=== PATIENT | male | born 1950 | race Caucasian/White ===

== ENCOUNTER 2022-04-24 15:30 | Emergency (ER) | payer MEDICARE, BC, SELFPAY ==
[2022-04-24 15:34] VITALS: BP 184/103; PULSE 75; RESP 20; TEMP 36.4; O2SAT 95; BMI 31.3
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
[2022-04-24 16:17] VITALS: O2SAT 93
[2022-04-24 16:24] LABS: Basophils Absolute Auto 0.02 K/uL (0.00-0.30); Basophils Percent Auto 0.3 % (0.0-3.0); Eosinophils Absolute Auto 0.15 K/uL (0.00-0.50); Eosinophils Percent Auto 1.9 % (0.0-7.0); Hematocrit 40.3 % (37.0-53.0); Hemoglobin* 12.7 gm/dL (13.5-17.5); Immature Granulocytes Abs Auto 0.02 K/uL (0.00-0.30); Lymphocytes Percent Auto 14.9 % (20-44); Mean Corpuscular HGB Conc 32 gm/dL (32-36); Mean Corpuscular Hemoglobin 26 pg (26-34); Mean Corpuscular Volume 83 fL (80-100); Monocytes Percent Auto 6.4 % (0.0-11.0); Neutrophils Percent Auto 76.2 % (42.0-72.0); Platelet Count* 267 K/uL (140-440); RDW Coefficient of Variation % 14.3 % (11.5-15.5); Red Blood Count 4.86 m/uL (4.30-5.90); White Blood Count* 7.79 K/uL (4.50-11.00)
[2022-04-24 16:34] LABS: Slide Review Reflex No
[2022-04-24 16:38] LABS: Chloride* 104 mmol/L (96-114)
[2022-04-24 16:39] LABS: Potassium* 4.7 mmol/L (3.6-5.1); Sodium* 140 mmol/L (135-149)
[2022-04-24 16:41] LABS: Creatinine* 0.8 mg/dL (0.5-1.5); Est. Creatinine Clearance* 64.26; Estimated Glomerular Filt Rate 95.21
[2022-04-24 16:42] LABS: Blood Urea Nitrogen* 18 mg/dL (7-30); Carbon Dioxide* 33 mmol/L (20-32); Glucose* 115 mg/dL (60-115)
[2022-04-24 16:51] LABS: NT Pro B Type NatriureticPept* 344 PG/mL (0-125)
[2022-04-24 17:07] LABS: Troponin I* < 0.01 ng/mL (0.01-0.04)
[2022-04-24 18:13] VITALS: BP 181/90; PULSE 68; RESP 22; O2SAT 93
--- NOTE | 2022-04-24 18:13 | ED.NURSE ---
Patient brought sandwich and juice. Spoke with daughter and primary contact to give update.
== END 2022-04-24 19:40 | disposition home or self-care (01) ==
LOC: ED 17:23
PROVIDERS: Emergency Provider Emergency Medicine Emergency Medical Services; PCP Family Medicine
DX: R53.83 Other fatigue (principal)
CPT/HCPCS: 36415; 80048; 83880; 84443; 84484; 85025; 99282; 99284

== ENCOUNTER 2022-09-26 08:14 | Inpatient (IN) | payer MEDICARE, BC, SELFPAY ==
[2022-09-26] VITALS (54 sets, daily range): BP systolic 80–127; BP diastolic 48–81; PULSE 46–73; RESP 18–26; TEMP 36.3–36.6; O2SAT 62–100; BMI 53.2; BMI 45.3
--- NOTE | 2022-09-26 08:40 | ED.NURSE ---
Patient is sleepy and pulse ox 62% on room air. placed on 6 liters of O2 via NC and patient bounced up to 86% on room air. called RT to come and see patient and placed on OxyMask.
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
[2022-09-26 08:53] LABS: Lactate* 1.2 mmol/L (0.5-1.9)
[2022-09-26 08:54] LABS: Basophils Percent Auto 0.1 % (0.0-3.0); Eosinophils Percent Auto 0.2 % (0.0-7.0); Hematocrit 45.8 % (37.0-53.0); Hemoglobin* 13.9 gm/dL (13.5-17.5); Immature Granulocytes Pct Auto 0.3 %; Lymphocytes Percent Auto 11.4 % (20-44); Mean Corpuscular HGB Conc 30 gm/dL (32-36); Mean Corpuscular Hemoglobin 27 pg (26-34); Mean Corpuscular Volume 87 fL (80-100); Monocytes Percent Auto 7.7 % (0.0-11.0); Neutrophils Percent Auto 80.3 % (42.0-72.0); Platelet Count* 355 K/uL (140-440); RDW Coefficient of Variation % 15.8 % (11.5-15.5); Red Blood Count 5.24 m/uL (4.30-5.90); White Blood Count* 12.51 K/uL (4.50-11.00)
--- NOTE | 2022-09-26 08:55 | RESP.RT ---
Patient has Home Oxygen 24/, bleed in at Home CPAP at [facility].
[2022-09-26 08:57] LABS: PCO2 VBG 64 mmHG (40-50); pH VBG 7.347 (7.32-7.43)
[2022-09-26 08:58] LABS: HCO3 VBG 35 mmol/L (21-28); PO2 VBG 43.2 mmHG (25-47)
[2022-09-26 08:59] LABS: Slide Review Reflex No
[2022-09-26 09:01] LABS: Troponin, Point-of-Care* 0.03 ng/ml (0.01-0.04)
--- NOTE | 2022-09-26 09:13 | RESP.RT ---
Addendum entered by Uriah Willis, MAILROOM COORDINATOR, RE[employer]IGERATION SYSTEMS INSTALLER 09/26/22 10:35: DuoNeb given, instead of Just Albuterol Original Note: Albuterol nebulizer done with Mask, patient unable to use mouth piece, small volume nebulizer at 8 Lpm Oxygen, post treatment SaO2 97%, less retractions noted. Cough was promoted; loose, moist, congested cough, patient swallowed secretions. Patient returned to OxyMask 6 Lpm for transport to CT scan.
[2022-09-26 09:17] LABS: Chloride* 100 mmol/L (96-114); Sodium* 141 mmol/L (135-149)
[2022-09-26 09:18] LABS: Potassium* 4.4 mmol/L (3.6-5.1)
[2022-09-26 09:20] LABS: Creatinine* 1.4 mg/dL (0.5-1.5); Estimated Glomerular Filt Rate 54 ml/min
[2022-09-26 09:21] LABS: Blood Urea Nitrogen* 29 mg/dL (7-30); Calcium* 9.4 mg/dL (8.4-10.6); Carbon Dioxide* 34 mmol/L (20-32); Glucose* 131 mg/dL (60-115)
[2022-09-26 09:24] LABS: C Reactive Protein* 3.8 mg/dL (0.5-1.0)
[2022-09-26 09:29] LABS: D Dimer Quantitative* 0.65 ug/ml (0.00-0.50)
--- NOTE | 2022-09-26 09:30 | ED.NURSE ---
Pt back in room after CT. Pt had some difficulty lying still throughout CT scan. O2 sats remained stable in mid 90's% on 6L Oxymask through CT exam. Pt remains on 6L O2 oxymask in room.
[2022-09-26 09:39] LABS: PCR FLU A Negative PCR FLU A (Negative); PCR FLU B Negative PCR FLU B (Negative); PCR RSV Negative PCR RSV (Negative)
[2022-09-26 09:46] LABS: SARS PCR* Negative SARS-CoV-2 (Negative)
--- NOTE | 2022-09-26 10:00 | ED.NURSE ---
Pt satting in ~98-99% on 6L O2 oxymask. Titrated down to 4L O2 oxymask. Satting ~96% on 4L. MD notified.
[2022-09-26 10:05] LABS: Carboxyhemoglobin* 3.1 % (0.0-5.0)
[2022-09-26 12:03] LABS: HCO3 VBG 37 mmol/L (21-28); PO2 VBG 39.8 mmHG (25-47); pH VBG 7.283 (7.32-7.43)
[2022-09-26 12:06] LABS: PCO2 VBG 79 mmHG (40-50)
--- NOTE | 2022-09-26 12:14 | ED.NURSE ---
Critical lab:PCO2 79 RT made aware and switching patient from high flow NC to BiPap
--- NOTE | 2022-09-26 13:20 | ED.NURSE ---
RN report given to Med/Surg. Patient will transfer to CCU4 pending repeat PCO2 blood draw.
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
--- NOTE | 2022-09-26 13:36 | ED.NURSE ---
son did bring in his c pap supplies and has been on the b pap. getting blood gas now. rt has been managing the bi pap.
--- NOTE | 2022-09-26 14:12 | ED.NURSE ---
is unable to swallow pills at present. is very sleepy and did get c pap mask from home to work with bi pap.
[2022-09-26 14:32] LABS: Procalcitonin* 0.14 ng/mL (<0.50)
--- NOTE | 2022-09-26 14:47 | ED.NURSE ---
son had brought in c pap. there was a faulty cord going into the machine, causing it to malfunction and not work. .has not been using this at home due to this finding.
[2022-09-26 14:53] LABS: HCO3 VBG 38 mmol/L (21-28); PO2 VBG 31.3 mmHG (25-47); pH VBG 7.317 (7.32-7.43)
[2022-09-26 14:54] LABS: PCO2 VBG 75 mmHG (40-50)
--- NOTE | 2022-09-26 14:54 | RESP.RT ---
Patient own BiPAP checked, patient and son has stated BiPAP not working; BiPAP checked and plug in to machine is found to be defective, it may be the end of the cord that is defective, how ever that is the area of the problem
--- NOTE | 2022-09-26 16:03 | RESP.RT ---
Transport patient on BiPAP from ED to Med/Surg CC4 on BiPAP at previous settings, FiO2 decreased to 25% with SaO2 remaining at 95%, IPAP 24 cm pressure, EPAP 12 cm pressure, rate was increased to 26/minute, patient total rate 28-30/minute, vt 800 ml, VE 15 L, Alarms on and functioning. Patient continues to use own mask with varying leak, his mask is better fit that our total face mask.
[2022-09-26 17:24] LABS: Amphetamine Screen Urine Negative (Negative); Barbiturate Screen Urine Negative (Negative); Benzodiazepines Screen Urine Negative (Negative); Cannabinoid Screen Urine Negative (Negative); Cocaine Screen Urine Negative (Negative); Methadone Screen Urine Negative (Negative); Methamphetamines Screen Urine Negative (Negative); Opiate Screen Urine Negative (Negative); Oxycodone Screen Urine Negative (Negative); Phencyclidine Screen Urine Negative (Negative); Tricyclic Antidepressant Urine Negative (Negative)
[2022-09-26 17:35] LABS: Appearance Urine Clear (Clear); Bilirubin Urine Negative (Negative); Blood Urine Negative (Negative); Color Urine Yellow (Yellow); Glucose Urine Negative (Negative); Ketones Urine Negative (Negative); Leukocyte Esterase Urine Negative (Negative); Nitrite Urine Negative (Negative); Protein Urine Negative (Negative); Specific Gravity Urine 1.015 (1.000-1.030); Urobilinogen Urine 0.2 (0.2-1.0)
[2022-09-26 17:41] LABS: RBC Urine 0-2 (0-2); WBC Urine 0-2 (0-5)
[2022-09-26 17:42] LABS: Squamous Epithelial Cell Urine Few (None-Few)
[2022-09-26] MEDS: IPRAT-ALBUT 0.5-2.5 MG/3 ML NEB 1 NEB IH (17:57)
[2022-09-26] MEDS: METHYLPREDNISOLONE SOD SUCC 62.5 MG/ML (125) 125 MG IVP ×2 (18:43→23:27)
--- NOTE | 2022-09-26 19:35 | PC.NURSE ---
End of Shift: Patient admitted to CCU4. On BiPAP per RT settings. O2 sats mid 90s. Upon arrival patient mostly nonresponsive only answering yes to questions. Incontinent of urine. Mas placed per MD. Unable to swallow upon admission. Patient became more alert this evening able to state name and birthday and take sips of water. Up to chair and BSC with 2 assist and gait belt. Denies pain.
[2022-09-26] MEDS: lamoTRIgine 25 MG TABLET PO (20:06)
[2022-09-26] MEDS: BUDESONIDE 0.5 MG/2ML NEB NEB (20:09)
[2022-09-27 02:43] VITALS: BP 117/68; PULSE 59; RESP 26; TEMP 36.6; O2SAT 93
--- NOTE | 2022-09-27 03:52 | PC.NURSE ---
Pt rested in chair all night. BiPap set up by RT with Pt's mask; tolerated well. Up bed side commode for BM. Mas patent and draining. Pt confused to location, time, day, season etc. Reporting zero pain. Afebrile. Tele - Sinus Mook. Cooperative.
[2022-09-27] MEDS: METHYLPREDNISOLONE SOD SUCC 62.5 MG/ML (125) 125 MG IVP (05:15)
--- NOTE | 2022-09-27 05:58 | PC.NURSE ---
Pt took off Bi Pap @ [address] back on. 1L NC was placed on pt to maintain Sats at 90.
--- NOTE | 2022-09-27 06:57 | PC.NURSE ---
Pt is getting much more uncooperative this morning. Saying crude things to female personnel. Refuses to place on Oxygen. Wanting his clothes to go home.
[2022-09-27 07:00] VITALS: BP 112/70; PULSE 63; PULSE 77; RESP 20; TEMP 36.8; O2SAT 88
[2022-09-27 07:14] VITALS: PULSE 63
[2022-09-27] MEDS: predniSONE 20 MG TABLET 60 MG PO (08:50)
[2022-09-27] MEDS: buPROPion XL 150 MG TABLET 300 MG PO (08:50)
[2022-09-27] MEDS: BUDESONIDE 0.5 MG/2ML NEB NEB (08:50)
[2022-09-27] MEDS: IPRAT-ALBUT 0.5-2.5 MG/3 ML NEB 1 NEB IH (08:50)
[2022-09-27] MEDS: ESCITALOPRAM 10 MG TABLET 20 MG PO (08:51)
[2022-09-27] MEDS: METOPROLOL SUCCINATE (XL) 50 MG TAB PO (08:51)
[2022-09-27] MEDS: levoFLOXacin 500 MG TABLET PO (08:51)
[2022-09-27] MEDS: LOSARTAN POTASSIUM 50 MG TABLET 100 MG PO (08:52)
[2022-09-27] MEDS: TORSEMIDE 20 MG TABLET PO (08:52)
[2022-09-27] MEDS: POTASSIUM CHLORIDE 10 MEQ CAPSULE ER 20 MEQ PO (08:52)
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
--- NOTE | 2022-09-27 09:51 | W.PM.CROSSCO ---
Subjective Subjective Interval history: patient refusing blood work, ct PE study, medical cares He is requesting discharge He is fully alert and oriented understands the risks of premature discharge including potential will discharge AMA full discharge summary to follow
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
--- NOTE | 2022-09-29 11:02 | URNOTE ---
Received call from lab regarding positive blood culture. Discussed this with Dr Dora Sarkar who recommended the patient should return to ER for re evaluation. Phone call to patient to discuss Dr Sarkar's recommendation. Discussed the seriousness of a positive blood culture and need to follow up. Patient states I am feeling fine. If I start to feel under the weather I'll certainly give it some consideration. Pt then quickly hung up the phone.
--- NOTE | 2022-09-30 17:18 | PC.NURSE ---
Received call from patients family regarding patients positive blood cultures, family updated on patients being aware and his response. see previous note.
== END 2022-09-27 10:38 | disposition left against medical advice (07) | DRG 189 ==
LOC: ED 11:34 → MEDSURG 12:19
PROVIDERS: Family Medicine; Admitting Provider Family Medicine; Emergency Provider Emergency Medicine Emergency Medical Services; PCP Family Medicine; Visit Provider Family Medicine
DX: J96.21 Acute and chronic respiratory failure with hypoxia (principal); S22.079A Unspecified fracture of T9-T10 vertebra, initial encounter for closed fracture; E66.2 Morbid (severe) obesity with alveolar hypoventilation; Z68.42 Body mass index [BMI] 45.0-49.9, adult; E87.29 Other acidosis; J96.22 Acute and chronic respiratory failure with hypercapnia; R41.82 Altered mental status, unspecified; J44.9 Chronic obstructive pulmonary disease, unspecified; I44.0 Atrioventricular block, first degree; I11.0 Hypertensive heart disease with heart failure; J45.40 Moderate persistent asthma, uncomplicated; I50.82 Biventricular heart failure; Z91.198 Patient's noncompliance with other medical treatment and regimen for other reason; E11.9 Type 2 diabetes mellitus without complications; K21.9 Gastro-esophageal reflux disease without esophagitis; E53.8 Deficiency of other specified B group vitamins; F32.9 Major depressive disorder, single episode, unspecified; Z96.662 Presence of left artificial ankle joint; Z96.661 Presence of right artificial ankle joint; N20.0 Calculus of kidney; V48.5XXA Car driver injured in noncollision transport accident in traffic accident, initial encounter
CPT/HCPCS: 36415; 36600; 70450; 71260; 72125; 74177; 80048; 80053; 80306; 81001; 81003; 82375; 82803; 83605; 83735; 83880; 84145; 84484; 85025; 85379; 86140; 87040; 87081; 87086; 87502; 87634; 87635; 93005; 94640; 94660; 94761; 99285; A9270; J1956; J2930; J7512; J7626; Q9967

== ENCOUNTER 2022-09-30 20:10 | Emergency (ER) | payer MEDICARE, BC, SELFPAY ==
[2022-09-30 20:28] VITALS: BP 131/77; PULSE 84; RESP 22; TEMP 36.6; O2SAT 93; BMI 41.1
[2022-09-30 20:56] LABS: Lactate* 1.5 mmol/L (0.5-1.9)
[2022-09-30 20:57] LABS: Basophils Absolute Auto 0.01 K/uL (0.00-0.30); Basophils Percent Auto 0.1 % (0.0-3.0); Eosinophils Absolute Auto 0.23 K/uL (0.00-0.50); Eosinophils Percent Auto 2.8 % (0.0-7.0); Hematocrit 45.5 % (37.0-53.0); Hemoglobin* 13.8 gm/dL (13.5-17.5); Immature Granulocytes Abs Auto 0.01 K/uL (0.00-0.30); Immature Granulocytes Pct Auto 0.1 %; Lymphocytes Percent Auto 17.1 % (20-44); Mean Corpuscular HGB Conc 30 gm/dL (32-36); Mean Corpuscular Hemoglobin 26 pg (26-34); Mean Corpuscular Volume 86 fL (80-100); Monocytes Percent Auto 7.5 % (0.0-11.0); Neutrophils Percent Auto 72.4 % (42.0-72.0); Platelet Count* 255 K/uL (140-440); RDW Coefficient of Variation % 15.2 % (11.5-15.5); Red Blood Count 5.28 m/uL (4.30-5.90)
[2022-09-30 21:02] LABS: Slide Review Reflex No
[2022-09-30 21:18] LABS: C Reactive Protein* 1.1 mg/dL (0.5-1.0)
[2022-09-30 21:59] VITALS: BP 128/69; PULSE 79; RESP 20; TEMP 36.7; O2SAT 95
--- NOTE | 2022-10-01 00:28 | ED.GENADULT ---
HPI - General Adult General Date Seen: 10/01/22 Chief complaint: Unspecified Complaint, Adult Stated complaint: Bacteria in blood, fell last night Time Seen by Provider: 09/30/22 20:21 Source: patient and old records reviewed History of Present Illness HPI narrative: Patient is a 71-year-old male who was recently hospitalized with respiratory failure, he left the hospital AMA 1 day after he was admitted. He had blood cultures drawn at that time. This was on September 26. On September 29, 1 of the aerobic bottles grew out Gram-positive cocci. He was called today and advised to come back due to a positive blood culture. He tells me that he has been feeling just fine. He says his respiratory status is good. He uses CPAP at home. His only complaint he says is that his tongue has been ?on fire?. It sounds as if this is been a problem for quite some time. He says that he seen his dentist in his dentist did not have any advice for him. He has not had any fevers or chills. He denies unusual weakness, nausea, vomiting. He would not have had any reason to come in had he not been called by the hospital. He is not currently on antibiotics. Related Data Home Medications Medication Instructions Recorded Confirmed albuterol sulfate 90 mcg/actuation 2 inh inhalation Q4H PRN 04/24/22 09/30/22 aerosol inhaler budesonide-formoterol HFA 160 2 puff inhalation BID 04/24/22 09/30/22 mcg-4.5 mcg/actuation aerosol inhaler (Symbicort) bupropion HCl 300 mg 24 hr tablet, 300 mg PO DAILY 04/24/22 09/30/22 extended release (Wellbutrin XL) escitalopram oxalate 20 mg tablet 20 mg PO DAILY 04/24/22 09/30/22 (Lexapro) lamotrigine 100 mg tablet 100 mg PO HS 04/24/22 09/30/22 (Lamictal) losartan 100 mg tablet 100 mg PO DAILY 04/24/22 09/30/22 metoprolol succinate 50 mg 50 mg PO DAILY 04/24/22 09/30/22 tablet,extended release 24 hr torsemide 20 mg tablet 20 mg PO DAILY 04/24/22 09/30/22 potassium chloride 10 mEq 20 meq PO DAILY 09/26/22 09/30/22 tablet,extended release(part/cryst) umeclidinium 62.5 mcg/actuation 1 inh inhalation DAILY 09/26/22 09/30/22 blister powder for inhalation (Incruse Ellipta) Previous Rx's Medication Instructions Recorded Magic Mouthwash 10 ml PO TID PRN #120 mL 09/30/22 (Lidocaine/Benadryl/Maalox) 120 mL suspension Allergies Allergy/AdvReac Type Severity Reaction Status Date / Time Penicillins Allergy Intermediate Hives Verified 09/30/22 20:41 Review of Systems Status of ROS: Reports: 10 or more systems reviewed and unremarkable except as noted in History and below [facility] Medical History Anxiety Biventricular congestive heart failure COPD (chronic obstructive pulmonary disease) Depression GERD (gastroesophageal reflux disease) Heart failure Hypercapnic respiratory failure Hyperlipemia Hypertension Hypoxia Major depression Moderate persistent asthma Morbid obesity with alveolar hypoventilation Non-compliance Oxygen dependent Sleep apnea with use of continuous positive airway pressure (CPAP) Thoracic compression fracture Vitamin B12 deficiency Surgical History 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 Previously casual drinker. No longer drinking alcohol. Highest level of school completed/degree received: don't know Smoking Status: Former smoker What tobacco products do you use: cigarettes Smoking quit date/years: <= 15 years ago Do you use any of these nicotine containing products: None Second hand tobacco smoke exposure: Yes How often do you have a drink containing alcohol: never How often do you have six or more drinks on one occasion: Never AUDIT-C Alcohol total score: 0 Non-prescribed substance use: denies use Exam Narrative: Exam Narrative: Vital signs as noted above. In general, an alert, pleasant elderly male. Head: Normocephalic, atraumatic. Eyes: Pupils are equal reactive. Extraocular movements are full. Conjunctivae are normal. ENT: Mucous membranes are moist. On his tongue, there are a couple of deep, chronic appearing ulcerations that are linear on the sides of his tongue, and 1 rounded ulceration, again fairly chronic looking on the right side of the tip of his tongue. Neck: Supple without lymphadenopathy. Heart: Regular rate and rhythm. No significant murmur. Lungs: Breath sounds are somewhat diminished bilaterally but no significant wheezing. No crackles. Abdomen: Obese and soft. Nontender. Extremities: Radial pulses intact. Neurologic: Patient is alert and oriented to person and place. Speech is fluent. Face is symmetric. Moves all extremities equally. Affect: Normal. Skin: Warm and dry. Well perfused. Const: Vital Signs, click to edit/add: Vital Signs - 24 hr 09/30/22 20:28 09/30/22 21:59 Temperature 97.8 F 98.1 F Pulse Rate [Right Pulse Oximeter] 84 79 Respiratory Rate 22 20 Blood Pressure [Ri ght Upper Arm] 131/77 128/69 Pulse Oximetry 93 95 Oxygen Delivery Me thod Room Air Room Air Documenting provider has reviewed patient's vital signs: yes Course Course Hospital Course: Following initial evaluation, I ordered blood work to include a CBC, CRP, lactate. His CRP was very minimally elevated at 1.1, lactate was normal and CBC showed a white blood cell count of 8.3. Hemoglobin is 13.8. Platelets are normal. 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 This is a g positive cocci which sometimes lives on the skin and mucous membranes of humans. Usually nonpathogenic, but has been associated with some serious infections. Overall, his labs are reassuring. He is afebrile and feeling well. With growth in only 1 bottle and after several days, my suspicion is that this is likely contaminant. However, given his fragile medical state, I am going to cover him with antibiotics. In reading about this organism, it looks like it is usually susceptible to broad-spectrum antibiotics that cover usual g positives, such as Augmentin and doxycycline. He has a penicillin allergy, therefore I prescribed doxycycline. I do not have sensitivities yet, those are reportedly likely to be available tomorrow morning. If at that time doxycycline is not a good choice it can be changed. Discussed with him that he should come back if his clinical status changes and he is feeling worse, develops fevers, vomiting, chills, weakness etc.. With respect to his tongue, he clearly has fairly chronic looking ulcerations of unclear etiology. Recommended that he follow up with ENT for further evaluation. In the meantime I prescribed headache mouthwash to try and help with the discomfort when he is eating. Vital Signs Vital signs: Initial Vital Signs Temperature 97.8 F 09/30/22 20:28 Temperature Source Temporal Artery Scan 09/30/22 20:28 Pulse Rate 84 09/30/22 20:28 Respiratory Rate 22 09/30/22 20:28 Blood Pressure 131/77 09/30/22 20:28 Blood Pressure Mean 95 09/30/22 20:28 Blood Pressure Position Sitting 09/30/22 20:28 Pulse Oximetry 93 09/30/22 20:28 Oxygen Delivery Method 09/30/22 20:28 Vital Signs Temperature 97.8 F 09/30/22 20:28 Pulse Rate 84 09/30/22 20:28 Respiratory Rate 22 09/30/22 20:28 Blood Pressure 131/77 09/30/22 20:28 Pulse Oximetry 93 09/30/22 20:28 Oxygen Delivery Method 09/30/22 20:28 Temperature 98.1 F 09/30/22 21:59 Pulse Rate 79 09/30/22 21:59 Respiratory Rate 20 09/30/22 21:59 Blood Pressure 128/69 09/30/22 21:59 Pulse Oximetry 95 09/30/22 21:59 Oxygen Delivery Method 09/30/22 21:59 Medical Decision Making Lab Data Labs: Lab Results 09/30/22 09/30/22 09/30/22 Range/Units 20:52 20:52 20:52 WBC 8.30 (4.50-11.00) K/uL RBC 5.28 (4.30-5.90) m/uL Hgb 13.8 (13.5-17.5) gm/dL Hct 45.5 (37.0-53.0) % MCV 86 (80-100) fL MCH 26 (26-34) pg MCHC 30 L (32-36) gm/dL RDW Coeff of Nedra 15.2 (11.5-15.5) % Plt Count 255 (140-440) K/uL Neut % (Auto) 72.4 H (42.0-72.0) % Lymph % (Auto) 17.1 L (20-44) % Hinds % (Auto) 7.5 (0.0-11.0) % Eos % (Auto) 2.8 (0.0-7.0) % Baso % (Auto) 0.1 (0.0-3.0) % Neut # (Auto) 6.00 (1.7-7.0) K/uL Lymph # (Auto) 1.40 (0.90-2.90) K/uL Hinds # (Auto) 0.60 (0.00-0.90) K/UL Eos # (Auto) 0.23 (0.00-0.50) K/uL Baso # (Auto) 0.01 (0.00-0.30) K/uL Lactate 1.5 (0.5-1.9) mmol/L C-Reactive Protein 1.1 H (0.5-1.0) mg/dL Discharge Plan Discharge Clinical Impression: Blood bacterial culture positive Patient Disposition: Home, Self-Care Condition: Stable Instructions: Bacteremia (ED) Additional Instructions: Antibiotic as prescribed. If you develop new symptoms such as fever, chills, vomiting, weakness etc., return to the ER. Otherwise, follow up with clinic appointments as planned. Prescriptions: New Magic Mouthwash (Lidocaine/Benadryl/Maalox) 120 mL suspension 10 ml PO TID PRNQty: 120 0RF Rx Instructions: Lidocaine Viscous 2 % mucosal solution 40 mL; Maalox 200 mg-200 mg-20 mg/5 mL oral suspension 40 mL; Benadryl 12.5 mg/5 mL oral elixir 40 mL; Per 120 mL SWISH AND SPIT. MAY COMPOUND IF FIRST PRODUCT IS NOT AVAILABLE. No Action potassium chloride 10 mEq tablet,ER particles/crystals 20 meq PO DAILY Incruse Ellipta 62.5 mcg/actuation blister with device 1 inh INHALATION DAILY Label Comments: INHALE 1 PUFF BY MOUTH ONCE DAILY torsemide 20 mg tablet 20 mg PO DAILY Label Comments: 1 tablet daily albuterol sulfate 90 mcg/actuation HFA aerosol inhaler 2 inh INHALATION Q4H PRN Label Comments: INHALE 1 TO 2 PUFFS BY MOUTH EVERY 4 HOURS NEEDED lamotrigine [Lamictal] 100 mg tablet 100 mg PO HS Label Comments: Take 1 tablet by mouth at bedtime escitalopram oxalate [Lexapro] 20 mg tablet 20 mg PO DAILY Label Comments: Take 1 tablet by mouth once a day bupropion HCl [Wellbutrin XL] 300 mg tablet extended release 24 hr 300 mg PO DAILY Label Comments: 1 tablet by mouth once a day budesonide-formoterol [Symbicort] 160-4.5 mcg/actuation HFA aerosol inhaler 2 puff INHALATION BID Label Comments: INHALE 2 PUFFS BY MOUTH TWICE DAILY metoprolol succinate 50 mg tablet extended release 24 hr 50 mg PO DAILY losartan 100 mg tablet 100 mg PO DAILY Follow Up/Referrals: Hima Moore MD [Primary Care Provider] - Stand Alone Forms: [facility] Info Instructions
== END 2022-09-30 21:59 | disposition home or self-care (01) ==
PROVIDERS: Emergency Provider Emergency Medicine; PCP Family Medicine
DX: Z13.0 Encounter for screening for diseases of the blood and blood-forming organs and certain disorders involving the immune mechanism (principal); R89.5 Abnormal microbiological findings in specimens from other organs, systems and tissues
CPT/HCPCS: 36415; 83605; 85025; 86140; 99283; 99284

== ENCOUNTER 2023-07-21 05:15 | Emergency (ER) | payer MEDICARE, BC, SELFPAY ==
[2023-07-21] VITALS (43 sets, daily range): BP systolic 69–173; BP diastolic 36–96; PULSE 52–99; RESP 14–24; TEMP 36.8; O2SAT 79–100; BMI 39.5
--- NOTE | 2023-07-21 | CRLHL7_ITS ---
For Patients: As a result of the Cures Act, medical imaging exams and procedure reports are released immediately into your electronic medical record. You may view this report before your referring provider. If you have questions, please contact your health care provider. INDICATION: POST INTUBATION TECHNIQUE: Chest 1 view COMPARISON: 07/21/2023 FINDINGS: Interval placement of endotracheal tube, located in the distal trachea. No pneumothorax. Azygos lobe. No pleural effusion. Low lung volumes. Cardiac silhouette is enlarged. Similar coarsened parenchymal markings. IMPRESSION: Placement of endotracheal tube into the distal trachea. This should be pulled back 3 cm. Dictated by Bacilio Maravilla MD @ 07/21/2023 10:53:59 AM (Electronically Signed)
--- NOTE | 2023-07-21 05:30 | ED.NURSE ---
Dr. Ying does not want to have an iv. pt. can have lab come to draw blood.
--- NOTE | 2023-07-21 05:35 | CRLHL7_ITS ---
For Patients: As a result of the Century Cures Act, medical imaging exams and procedure reports are released immediately into your electronic medical record. You may view this report before your referring provider. If you have questions, please contact your health care provider. INDICATION: Dyspnea. TECHNIQUE: Chest 2 views. COMPARISON: 03/17/2021. FINDINGS: Limited study due to patient motion artifact. Heart and mediastinum: Unchanged cardiomegaly. Transverse dimension of the cardiac silhouette is exaggerated by low lung volumes. Lungs and pleural spaces: No significant consolidation, atelectasis or pleural effusion. Incidental azygos fissure, a normal anatomical variant. Bones and soft tissues: No significant findings. IMPRESSION: No specific radiographic findings to explain the history of dyspnea. Dictated by Ulysses Aguilar MD @ 07/21/2023 6:43:55 AM (Electronically Signed)
--- NOTE | 2023-07-21 05:45 | ED_ITS ---
HPI - General Adult General Chief complaint: Shortness of Breath/Dyspnea <Oanh Ying MD - Last Filed: 07/21/23 23:57> Stated complaint: Difficulty breathing <Oanh Ying MD - Last Filed: 07/21/23 23:57> Time Seen by Provider: 07/21/23 05:19 <Oanh Ying MD - Last Filed: 07/21/23 23:57> Source: patient and EMS <Oanh Ying MD - Last Filed: 07/21/23 23:57> Mode of arrival: EMS <Oanh Ying MD - Last Filed: 07/21/23 23:57> History of Present Illness HPI narrative: 72-year-old male with long-term history of medical noncompliance and obesity hypoventilation syndrome presents to the emergency department by EMS. Apparently his ?cousin? whom he lives with called EMS because patient was more s hort of breath. He is typically on 2 L of oxygen at baseline and they report that his oxygen was ?malfunctioning?. The circumstances of this are unclear. They also report that he did use THC this evening, no is able to give clarification if this is a regular or a new hobby for him. He denies fever, productive cough. No recent illness exposures. Appetite has been normal. He tells me that he does not ambulate at baseline but I question how he would transfer, care for himself, etc. without being able to do this. He denies any recent falls or injury. When I asked patient about his symptoms tonight, he tells me that he did not want EMS called. When EMS arrived, they noted his oxygen levels to be in the 60% range. They applied 8 L of nasal cannula oxygen and he quickly improved his oxygenation. We turned him down to 4 L upon arrival and he has been steadily satting 90-94% at this level. He denies chest pain. Patient is not able to elaborate on recent weakness, difficulty with ADLs or other questioning. He gives answers but they are not directly pertinent to answering the question given. No additional history was able to be gathered. Past medical history is notable for morbid obesity, COPD and asthma with chronic hypoxia and a prior thoracic compression fracture. He does not know his medications but what I can gather from previous hospitalizations as he has hypertension, chronic edema and mental health issues as well. Previous discharge medication list is reviewed as is hospitalization details from September of 2022. ROS per patient is negative times 12 systems from what I can gather from EMS notable positive for weakness and increased dyspnea. <Oanh Ying MD - Last Filed: 07/21/23 23:57> Related Data Home medications: Home Medications Medication Instructions Recorded Confirmed albuterol sulfate 90 mcg/actuation 2 inh inhalation Q4H PRN 04/24/22 07/21/23 aerosol inhaler budesonide-formoterol HFA 160 2 puff inhalation BID 04/24/22 07/21/23 mcg-4.5 mcg/actuation aerosol inhaler (Symbicort) bupropion HCl 300 mg 24 hr tablet, 300 mg PO DAILY 04/24/22 07/21/23 extended release (Wellbutrin XL) escitalopram oxalate 20 mg tablet 20 mg PO DAILY 04/24/22 07/21/23 (Lexapro) lamotrigine 100 mg tablet 100 mg PO HS 04/24/22 07/21/23 (Lamictal) losartan 100 mg tablet 100 mg PO DAILY 04/24/22 07/21/23 metoprolol succinate 50 mg 50 mg PO DAILY 04/24/22 07/21/23 tablet,extended release 24 hr torsemide 20 mg tablet 20 mg PO DAILY 04/24/22 07/21/23 potassium chloride 10 mEq 20 meq PO DAILY 09/26/22 07/21/23 tablet,extended release(part/cryst) <Oanh Ying MD - Last Filed: 07/21/23 23:57> Allergies/adverse reactions: Allergies Allergy/AdvReac Type Severity Reaction Status Date / Time Penicillins Allergy Intermediate Hives Verified 07/21/23 05:29 <Oanh Ying MD - Last Filed: 07/21/23 23:57> [facility] Medical History: Medical History Non-compliance ?Z91.199 - Patient's noncompliance with other medical treatment and regimen due to unspecified reason (ICD-10) Thoracic compression fracture ?S22.000A - Wedge compression fracture of unspecified thoracic vertebra, initial encounter for closed fracture (ICD-10) COPD (chronic obstructive pulmonary disease) ?J44.9 - Chronic obstructive pulmonary disease, unspecified (ICD-10) Hypercapnic respiratory failure ?J96.92 - Respiratory failure, unspecified with hypercapnia (ICD-10) Hypoxia ?R09.02 - Hypoxemia (ICD-10) Vitamin B12 deficiency ?E53.8 - Deficiency of other specified B group vitamins (ICD-10) Hyperlipemia ?E78.5 - Hyperlipidemia, unspecified (ICD-10) Moderate persistent asthma ?J45.40 - Moderate persistent asthma, uncomplicated (ICD-10) Major depression ?F32.9 - Major depressive disorder, single episode, unspecified (ICD-10) GERD (gastroesophageal reflux disease) ?K21.9 - Gastro-esophageal reflux disease without esophagitis (ICD-10) Morbid obesity with alveolar hypoventilation ?E66.2 - Morbid (severe) obesity with alveolar hypoventilation (ICD-10) Biventricular congestive heart failure ?I50.82 - Biventricular heart failure (ICD-10) Heart failure ?I50.9 - Heart failure, unspecified (ICD-10) Hypertension ?I10 - Essential (primary) hypertension (ICD-10) Anxiety ?F41.9 - Anxiety disorder, unspecified (ICD-10) Depression ?F32.A - Depression, unspecified (ICD-10) Oxygen dependent ?Z99.81 - Dependence on supplemental oxygen (ICD-10) Sleep apnea with use of continuous positive airway pressure (CPAP) ?G47.30 - Sleep apnea, unspecified (ICD-10) <Oanh Ying MD - Last Filed: 07/21/23 23:57> Surgical History: Surgical History Status post right ankle joint replacement ?Z96.661 - Presence of right artificial ankle joint (ICD-10) Status post left ankle joint replacement ?Z96.662 - Presence of left artificial ankle joint (ICD-10) <Oanh Ying MD - Last Filed: 07/21/23 23:57> Family History: Family History Father Cardiac arrhythmia <Oanh Ying MD - Last Filed: 07/21/23 23:57> Social History: Social History Narrative: Patient is a nonsmoker but had secondhand smoke exposure in the past. Previously casual drinker. No longer drinking alcohol. Highest level of school completed/degree received: don't know Smoking Status: Former smoker What tobacco products do you use: cigarettes Smoking quit date/years: <= 15 years ago Do you use any of these nicotine containing products: None Second hand tobacco smoke exposure: Yes How often do you have a drink containing alcohol: never How often do you have six or more drinks on one occasion: Never AUDIT-C Alcohol total score: 0 Non-prescribed substance use: denies use <Oanh Ying MD - Last Filed: 07/21/23 23:57> Exam Const: Vital Signs, click to edit/add: Vital Signs - 24 hr 07/21/23 05:24 07/21/23 06:00 07/21/23 06:00 Temperature 98.2 F Pulse Rate Pulse Rate [Right Pulse Oximeter] 99 Respiratory Rate 24 Blood Pressure Blood Pressure [Ri ght Upper Arm] 154/96 H Pulse Oximetry 94 92 92 Oxygen Delivery Me thod Nasal Cannula Nasal Cannula Oxygen Flow Rate 4 4 Fraction of Inspir ed Oxygen 07/21/23 06:35 07/21/23 07:30 07/21/23 08:00 Temperature Pulse Rate 61 63 61 Pulse Rate [Right Pulse Oximeter] Respiratory Rate 16 Blood Pressure 173/80 H Blood Pressure [Ri ght Upper Arm] Pulse Oximetry 100 99 89 Oxygen Delivery Me thod BiPAP BiPAP Oxygen Flow Rate Fraction of Inspir ed Oxygen 07/21/23 08:07 07/21/23 08:30 07/21/23 08:32 Temperature Pulse Rate 61 57 L 57 L Pulse Rate [Right Pulse Oximeter] Respiratory Rate Blood Pressure 168/73 H 112/59 L Blood Pressure [Ri ght Upper Arm] Pulse Oximetry 84 L 90 91 Oxygen Delivery Me thod BiPAP BiPAP BiPAP Oxygen Flow Rate Fraction of Inspir ed Oxygen 07/21/23 09:00 07/21/23 09:02 07/21/23 09:17 Temperature Pulse Rate 58 L 58 L Pulse Rate [Right Pulse Oximeter] Respiratory Rate Blood Pressure 107/61 108/86 Blood Pressure [Ri ght Upper Arm] Pulse Oximetry 85 L 86 L Oxygen Delivery Me thod BiPAP BiPAP BiPAP Oxygen Flow Rate Fraction of Inspir ed Oxygen 07/21/23 09:21 07/21/23 09:30 07/21/23 09:32 Temperature Pulse Rate 60 56 L Pulse Rate [Right Pulse Oximeter] Respiratory Rate Blood Pressure 125/62 Blood Pressure [Ri ght Upper Arm] Pulse Oximetry 92 94 Oxygen Delivery Me thod BiPAP BiPAP Oxygen Flow Rate Fraction of Inspir ed Oxygen 0.30 07/21/23 10:00 07/21/23 10:03 07/21/23 10:14 Temperature Pulse Rate 61 57 L 57 L Pulse Rate [Right Pulse Oximeter] Respiratory Rate Blood Pressure 107/63 132/68 Blood Pressure [Ri ght Upper Arm] Pulse Oximetry 79 L 99 100 Oxygen Delivery Me thod BiPAP BiPAP BiPAP Oxygen Flow Rate Fraction of Inspir ed Oxygen 07/21/23 10:17 07/21/23 10:23 07/21/23 10:27 Temperature Pulse Rate 61 58 L 67 Pulse Rate [Right Pulse Oximeter] Respiratory Rate 15 Blood Pressure 125/75 112/80 159/90 H Blood Pressure [Ri ght Upper Arm] Pulse Oximetry 90 94 96 Oxygen Delivery Me thod Intubated Intubated Intubated Oxygen Flow Rate Fraction of Inspir ed Oxygen 07/21/23 10:30 07/21/23 10:33 07/21/23 10:38 Temperature Pulse Rate 61 64 58 L Pulse Rate [Right Pulse Oximeter] Respiratory Rate 16 18 14 Blood Pressure 128/84 101/58 L Blood Pressure [Ri ght Upper Arm] Pulse Oximetry 96 95 96 Oxygen Delivery Me thod Intubated Intubated Intubated Oxygen Flow Rate Fraction of Inspir ed Oxygen 07/21/23 10:43 07/21/23 10:44 07/21/23 10:47 Temperature Pulse Rate 58 L 58 L 60 Pulse Rate [Right Pulse Oximeter] Respiratory Rate 18 20 20 Blood Pressure 83/46 L 95/52 L 87/44 L Blood Pressure [Ri ght Upper Arm] Pulse Oximetry 98 98 95 Oxygen Delivery Me thod Intubated Intubated Intubated Oxygen Flow Rate Fraction of Inspir ed Oxygen 07/21/23 10:52 07/21/23 10:54 07/21/23 10:57 Temperature Pulse Rate 56 L 56 L 55 L Pulse Rate [Right Pulse Oximeter] Respiratory Rate 18 20 20 Blood Pressure 71/36 L 72/39 L 76/37 L Blood Pressure [Ri ght Upper Arm] Pulse Oximetry 93 94 94 Oxygen Delivery Me thod Intubated Intubated Intubated Oxygen Flow Rate Fraction of Inspir ed Oxygen 07/21/23 11:00 07/21/23 11:02 07/21/23 11:10 Temperature Pulse Rate 55 L 56 L 55 L Pulse Rate [Right Pulse Oximeter] Respiratory Rate 20 20 19 Blood Pressure 82/42 L 69/50 L Blood Pressure [Ri ght Upper Arm] Pulse Oximetry 95 94 91 Oxygen Delivery Me thod Intubated Intubated Intubated Oxygen Flow Rate Fraction of Inspir ed Oxygen 07/21/23 11:13 07/21/23 11:19 07/21/23 11:23 Temperature Pulse Rate 54 L 53 L Pulse Rate [Right Pulse Oximeter] Respiratory Rate 14 20 20 Blood Pressure 89/51 L 89/53 L Blood Pressure [Ri ght Upper Arm] Pulse Oximetry 94 95 Oxygen Delivery Me thod Intubated Intubated Oxygen Flow Rate Fraction of Inspir ed Oxygen 07/21/23 11:30 07/21/23 11:31 07/21/23 11:33 Temperature Pulse Rate 54 L 53 L 53 L Pulse Rate [Right Pulse Oximeter] Respiratory Rate 20 20 20 Blood Pressure 108/63 Blood Pressure [Ri ght Upper Arm] Pulse Oximetry 96 96 96 Oxygen Delivery Me thod Intubated Intubated Intubated Oxygen Flow Rate Fraction of Inspir ed Oxygen 07/21/23 11:37 07/21/23 11:42 07/21/23 11:48 Temperature Pulse Rate 53 L 53 L 58 L Pulse Rate [Right Pulse Oximeter] Respiratory Rate 20 20 20 Blood Pressure 111/63 112/72 84/50 L Blood Pressure [Ri ght Upper Arm] Pulse Oximetry 96 96 89 Oxygen Delivery Me thod Intubated Intubated Intubated Oxygen Flow Rate Fraction of Inspir ed Oxygen 07/21/23 11:52 07/21/23 11:57 07/21/23 12:00 Temperature Pulse Rate 52 L Pulse Rate [Right Pulse Oximeter] Respiratory Rate 20 20 20 Blood Pressure 117/75 110/65 Blood Pressure [Ri ght Upper Arm] Pulse Oximetry 95 Oxygen Delivery Me thod Intubated Intubated Intubated Oxygen Flow Rate Fraction of Inspir ed Oxygen <Oanh Ying MD - Last Filed: 07/21/23 23:57> Vital Signs, click to edit/add: Vital Signs - 24 hr 07/21/23 05:24 07/21/23 06:00 07/21/23 06:00 Temperature 98.2 F Pulse Rate Pulse Rate [Right Pulse Oximeter] 99 Respiratory Rate 24 Blood Pressure Blood Pressure [Ri ght Upper Arm] 154/96 H Pulse Oximetry 94 92 92 Oxygen Delivery Me thod Nasal Cannula Nasal Cannula Oxygen Flow Rate 4 4 Fraction of Inspir ed Oxygen 07/21/23 06:35 07/21/23 07:30 07/21/23 08:00 Temperature Pulse Rate 61 63 61 Pulse Rate [Right Pulse Oximeter] Respiratory Rate 16 Blood Pressure 173/80 H Blood Pressure [Ri ght Upper Arm] Pulse Oximetry 100 99 89 Oxygen Delivery Me thod BiPAP BiPAP Oxygen Flow Rate Fraction of Inspir ed Oxygen 07/21/23 08:07 07/21/23 08:30 07/21/23 08:32 Temperature Pulse Rate 61 57 L 57 L Pulse Rate [Right Pulse Oximeter] Respiratory Rate Blood Pressure 168/73 H 112/59 L Blood Pressure [Ri ght Upper Arm] Pulse Oximetry 84 L 90 91 Oxygen Delivery Me thod BiPAP BiPAP BiPAP Oxygen Flow Rate Fraction of Inspir ed Oxygen 07/21/23 09:00 07/21/23 09:02 07/21/23 09:17 Temperature Pulse Rate 58 L 58 L Pulse Rate [Right Pulse Oximeter] Respiratory Rate Blood Pressure 107/61 108/86 Blood Pressure [Ri ght Upper Arm] Pulse Oximetry 85 L 86 L Oxygen Delivery Me thod BiPAP BiPAP BiPAP Oxygen Flow Rate Fraction of Inspir ed Oxygen 07/21/23 09:21 07/21/23 09:30 07/21/23 09:32 Temperature Pulse Rate 60 56 L Pulse Rate [Right Pulse Oximeter] Respiratory Rate Blood Pressure 125/62 Blood Pressure [Ri ght Upper Arm] Pulse Oximetry 92 94 Oxygen Delivery Me thod BiPAP BiPAP Oxygen Flow Rate Fraction of Inspir ed Oxygen 0.30 07/21/23 10:00 07/21/23 10:03 07/21/23 10:14 Temperature Pulse Rate 61 57 L 57 L Pulse Rate [Right Pulse Oximeter] Respiratory Rate Blood Pressure 107/63 132/68 Blood Pressure [Ri ght Upper Arm] Pulse Oximetry 79 L 99 100 Oxygen Delivery Me thod BiPAP BiPAP BiPAP Oxygen Flow Rate Fraction of Inspir ed Oxygen 07/21/23 10:17 07/21/23 10:23 07/21/23 10:27 Temperature Pulse Rate 61 58 L 67 Pulse Rate [Right Pulse Oximeter] Respiratory Rate 15 Blood Pressure 125/75 112/80 159/90 H Blood Pressure [Ri ght Upper Arm] Pulse Oximetry 90 94 96 Oxygen Delivery Me thod Intubated Intubated Intubated Oxygen Flow Rate Fraction of Inspir ed Oxygen 07/21/23 10:30 07/21/23 10:33 07/21/23 10:38 Temperature Pulse Rate 61 64 58 L Pulse Rate [Right Pulse Oximeter] Respiratory Rate 16 18 14 Blood Pressure 128/84 101/58 L Blood Pressure [Ri ght Upper Arm] Pulse Oximetry 96 95 96 Oxygen Delivery Me thod Intubated Intubated Intubated Oxygen Flow Rate Fraction of Inspir ed Oxygen 07/21/23 10:43 07/21/23 10:44 07/21/23 10:47 Temperature Pulse Rate 58 L 58 L 60 Pulse Rate [Right Pulse Oximeter] Respiratory Rate 18 20 20 Blood Pressure 83/46 L 95/52 L 87/44 L Blood Pressure [Ri ght Upper Arm] Pulse Oximetry 98 98 95 Oxygen Delivery Me thod Intubated Intubated Intubated Oxygen Flow Rate Fraction of Inspir ed Oxygen 07/21/23 10:52 07/21/23 10:54 07/21/23 10:57 Temperature Pulse Rate 56 L 56 L 55 L Pulse Rate [Right Pulse Oximeter] Respiratory Rate 18 20 20 Blood Pressure 71/36 L 72/39 L 76/37 L Blood Pressure [Ri ght Upper Arm] Pulse Oximetry 93 94 94 Oxygen Delivery Me thod Intubated Intubated Intubated Oxygen Flow Rate Fraction of Inspir ed Oxygen 07/21/23 11:00 07/21/23 11:02 07/21/23 11:10 Temperature Pulse Rate 55 L 56 L 55 L Pulse Rate [Right Pulse Oximeter] Respiratory Rate 20 20 19 Blood Pressure 82/42 L 69/50 L Blood Pressure [Ri ght Upper Arm] Pulse Oximetry 95 94 91 Oxygen Delivery Me thod Intubated Intubated Intubated Oxygen Flow Rate Fraction of Inspir ed Oxygen 07/21/23 11:13 07/21/23 11:19 07/21/23 11:23 Temperature Pulse Rate 54 L 53 L Pulse Rate [Right Pulse Oximeter] Respiratory Rate 14 20 20 Blood Pressure 89/51 L 89/53 L Blood Pressure [Ri ght Upper Arm] Pulse Oximetry 94 95 Oxygen Delivery Me thod Intubated Intubated Oxygen Flow Rate Fraction of Inspir ed Oxygen 07/21/23 11:30 07/21/23 11:31 07/21/23 11:33 Temperature Pulse Rate 54 L 53 L 53 L Pulse Rate [Right Pulse Oximeter] Respiratory Rate 20 20 20 Blood Pressure 108/63 Blood Pressure [Ri ght Upper Arm] Pulse Oximetry 96 96 96 Oxygen Delivery Me thod Intubated Intubated Intubated Oxygen Flow Rate Fraction of Inspir ed Oxygen 07/21/23 11:37 07/21/23 11:42 07/21/23 11:48 Temperature Pulse Rate 53 L 53 L 58 L Pulse Rate [Right Pulse Oximeter] Respiratory Rate 20 20 20 Blood Pressure 111/63 112/72 84/50 L Blood Pressure [Ri ght Upper Arm] Pulse Oximetry 96 96 89 Oxygen Delivery Me thod Intubated Intubated Intubated Oxygen Flow Rate Fraction of Inspir ed Oxygen 07/21/23 11:52 07/21/23 11:57 07/21/23 12:00 Temperature Pulse Rate 52 L Pulse Rate [Right Pulse Oximeter] Respiratory Rate 20 20 20 Blood Pressure 117/75 110/65 Blood Pressure [Ri ght Upper Arm] Pulse Oximetry 95 Oxygen Delivery Me thod Intubated Intubated Intubated Oxygen Flow Rate Fraction of Inspir ed Oxygen <Mariely Rios MD - Last Filed: 07/21/23 12:17> Documenting provider has reviewed patient's vital signs: yes <Oanh Ying MD - Last Filed: 07/21/23 23:57> Common normals: no apparent distress <Oanh Ying MD - Last Filed: 07/21/23 23:57> Other: Morbidly obese with signs of moderate hygiene. Delirium evidence with nonsensical answers though he is able to speak in full sentences. He is drowsy and falls back asleep quickly with a typical apnea type breathing picture of an obesity hypoventilation patient. He is easily arousable and pleasant. <Oanh Ying MD - Last Filed: 07/21/23 23:57> HENMT: Common normals: normocephalic and head/scalp atraumatic <Oanh Ying MD - Last Filed: 07/21/23 23:57> Head and scalp: normocephalic and atraumatic <Oanh Ying MD - Last Filed: 07/21/23 23:57> Face and sinus: normal facial exam <Oanh Ying MD - Last Filed: 07/21/23 23:57> Mouth: oral and palatal mucosa normal <MD Rayo Faria Last Filed: 07/21/23 23:57> Throat: posterior oropharynx normal <Oanh Ying MD - Last Filed: 07/21/23 23:57> Eye: Common normals: conjunctivae normal <MD Rayo Faria Last Filed: 07/21/23 23:57> Conjunctiva: conjunctiva(e) normal <MD Rayo Faria Last Filed: 07/21/23 23:57> Neck & C-Spine: Common normals: full ROM and no lymphadenopathy <Oanh Ying MD - Last Filed: 07/21/23 23:57> Resp: Other: Mild increased respiratory effort. Overall poor air movement. Expiratory wheeze noted. <MD Rayo Faria Last Filed: 07/21/23 23:57> Cardio: Common normals: regular rate, regular rhythm, S1 normal heart sound, S2 normal heart sound and no murmurs <Oanh Ying MD - Last Filed: 07/21/23 23:57> Rate: regular rate <MD Rayo Faria Last Filed: 07/21/23 23:57> Rhythm: regular rhythm <Oanh Ying MD - Last Filed: 07/21/23 23:57> Heart sounds: S1 normal and S2 normal <Oanh Ying MD - Last Filed: 07/21/23 23:57> Other: Heart sounds are distant but no obvious murmur <Oanh Ying MD - Last Filed: 07/21/23 23:57> GI: Other: Obese abdomen but no obvious mass or tenderness. Cannot palpate borders of internal organs. Positive bowel sounds in all 4 quadrants. <Oanh Ying MD - Last Filed: 07/21/23 23:57> Extremity: Other: Moves is legs symmetrically at free will. Can pull himself up using the bed rails to a sitting position upon request. Does require some mild assistance. No obvious focal deficit. <Oanh Ying MD - Last Filed: 07/21/23 23:57> Psych: Appearance: unkempt <Oanh Ying MD - Last Filed: 07/21/23 23:57> Other: Drowsy but arousable. No agitation. Speech is non pertinent but not garbled. Attempts to answer questions with slight skewing of answers. <Oanh Ying MD - Last Filed: 07/21/23 23:57> Skin: Narrative: Mild chronic venous stasis with no obvious open lacerations. <Oanh Ying MD - Last Filed: 07/21/23 23:57> Course Course ED Course: Hypoxia and patient with chronic respiratory failure with signs of acute delirium. Could be secondary to hypercapnia verses drug ingestion, verses other metabolic cause. Patient has been placed on oxygen and this has improved his oxygenation significantly. Will obtain typical screening labs, investigate for cardiac causes, chest x-ray, infection. Continue to provide supplemental oxygen. Await findings. Patient will need trial of ambulation, may need hospitalization if delirium does not clear. <Oanh Ying MD - Last Filed: 07/21/23 23:57> Reevaluation(s) Time of Reevaluation #1: 06:06 <Oanh Ying MD - Last Filed: 07/21/23 23:57> Reevaluation #1: I was able to speak with the patient's ?cousin?. He tells me that he called the ambulance because the patient was ?acting funny?. He was speaking and not making sense. Then, they notice that the oxygen machine was throwing errors. It sounds as though they do not have a portable type device of any kind. They have a stationary home unit. Willie says that it has a ?phone number? on it. He is willing to call this to inquire about service. I asked if he tried to unplug the machine and plug it back into reviewed. He says that he did. He does not remember what the air code was on the machine. They do not use a portable unit when they leave the house. Patient does selectively wear his oxygen typically. Cousin also reports that the patient does not regularly use THC, he tried the gummy for the 1st time tonight prior to his symptoms starting. <Oanh Ying MD - Last Filed: 07/21/23 23:57> Time of Reevaluation #2: 06:25 <Oanh Ying MD - Last Filed: 07/21/23 23:57> Reevaluation #2: Respiratory acidosis noted on labs. I suspect that this is more from the 8 L non-rebreather oxygen he was placed on rather than his typical home values. Although he admits to noncompliance with previously recommended BiPAP therapy. We are going to try to put him back on BiPAP that for an hour and see how he tolerates this and repeat his blood gases. <Oanh Ying MD - Last Filed: 07/21/23 23:57> Time of Reevaluation #3: 08:12 <Oanh Ying MD - Last Filed: 07/21/23 23:57> Reevaluation #3: Patient was started on 50% FiO2 rather than the 30% I had asked for. Thankfully his blood gases are starting to improve. He is less hypercapnia and less acidotic. I have asked RT now to read titrate his BiPAP to the higher pressure settings that I had originally requested which were not started and to lower the oxygen concentration as requested. They will continue to titrate this. <Oanh Ying MD - Last Filed: 07/21/23 23:57> Additional Reevaluation(s): 9:30 a.m. have previously evaluated this patient, is certainly up tended, is on BiPAP but it is difficult with his body habitus and patient did complain that he did not like it. I did ask him about intubation in he did shake his head no. We did try to fine prior advanced directives and could find none. I left a message for his cousin to contact us back. It is felt that he may need intubation for adequate ventilation. We will check on a bed availability, there is difficulty with any transfers right now in capacity at other institutions. I would like to speak with family in regards to this patient's status. Spoke with the hospitalist Dr. Connors, code status was not addressed last hospitalization likely because patient was obtunded when he came in. He did look in patient's [facility] record and saw that he was full code and 2020. All staff including the hospitalist physicians in the ED as well as nursing staff are in agreement that this patient is knots medically stable to be able to make informed decision making. It is felt that intubation is necessary for ventilation and airway management for him with his underlying COVID and respiratory disease. We have a bed at [facility],Dr. Huddleston is the accepting which Dr. Delatorre did talk to. Staff was assembled which included pharmacy and respiratory therapy. Myself and Dr. Delatorre were in attendance. Patient was given initial 200 mg IV ketamine and then we did follow post intubation with another 50 mg IV ketamine, did get 150 mg IV succinylcholine following the ketamine. The glide scope was used to intubate the patient. 7.5 ET tube was placed after visualization of the epi glottis and the airway. Air was seen in the tube, ET monitoring was applied. We will be getting a portable chest x-ray. Initially I was that 26 cm at the corner of the mouth, did draw back to 24 cm which better air entry was heard throughout the precordium per Dr. Delatorre. He is on the ventilator. IV ketamine drip is being initiated and post sedation plan is for transfer to [facility] when they have a bed. His dexamethasone and remdesivir have been initiated. 10:55 a.m.: Nursing staff alerted us that he was becoming hypotensive with pressures systolic 70s. He was on the ketamine drip, had had a few doses of Versed for post intubation management. Portable chest x-ray revealed that tube should be pulled back further but at this time overall patient is still oxygenating well. Respiratory therapy is been managing the ventilator. Will make sure they know there are reading. It does seem that there is maybe a little interstitial change on my preliminary review of this chest x-ray but no overt fluid overload. Dr. Delatorre did look at patient's cardiac function. He is bradycardic overall but seems to have good overall contractility, no excessively poor cardiomyopathy is visualized, no pericardial effusion. Note I did watch as Dr. Delatorre was doing some of the imaging. She also did look at his IVC which is looking a bit generous. We were going to initiate a L of normal saline over 2 hours but he probably might not handle that. Will start with 250 mL normal saline, get an NG tube in, get a Mas catheter in and initiate pressors with Levophed. Second pressure when I was in with him was already coming up at 82 systolic. Will observe for few minutes and initiate Levophed shortly if needed. Still awaiting transfer to [facility]. Will also recheck a venous blood gas, will do a troponin on him as well at this time. 11:10 a.m.: Patient's current systolic blood pressure 69. He is not arousable, not awakening, will see some movement at times. Will be initiating Levophed, will add in some fentanyl IV after initiation of Levophed. Once we are sure he is completely sedated, will do some paralyzation with vecuronium. Pharmacy is still in attendance and helping with the post sedation protocol. <Mariely Rios MD - Last Filed: 07/21/23 12:17> Consultations Consultation #1: Spoke with hospitalist, accepted for admission. Beginning dexamethasone and remdesivir. 0900 <Oanh Ying MD - Last Filed: 07/21/23 23:57> Vital Signs Vital signs: Initial Vital Signs Temperature 98.2 F 07/21/23 05:24 Temperature Source Temporal Artery Scan 07/21/23 05:24 Pulse Rate 99 07/21/23 05:24 Respiratory Rate 24 07/21/23 05:24 Blood Pressure 154/96 H 07/21/23 05:24 Blood Pressure Mean 115 H 07/21/23 05:24 Blood Pressure Position Supine 07/21/23 05:24 Pulse Oximetry 94 07/21/23 05:24 Oxygen Delivery Method Nasal Cannula 07/21/23 05:24 Oxygen Flow Rate 4 07/21/23 05:24 Vital Signs Temperature 98.2 F 07/21/23 05:24 Pulse Rate 99 07/21/23 05:24 Respiratory Rate 24 07/21/23 05:24 Blood Pressure 154/96 H 07/21/23 05:24 Pulse Oximetry 94 07/21/23 05:24 Oxygen Delivery Method Nasal Cannula 07/21/23 05:24 Oxygen Flow Rate 4 07/21/23 05:24 Temperature 98.2 F 07/21/23 05:24 Pulse Rate 52 L 07/21/23 11:52 Respiratory Rate 20 07/21/23 12:00 Blood Pressure 110/65 07/21/23 11:57 Pulse Oximetry 95 07/21/23 11:52 Oxygen Delivery Method Intubated 07/21/23 12:00 Oxygen Flow Rate 4 07/21/23 06:00 Fraction of Inspired Oxygen 0.30 07/21/23 09:21 <Oanh Ying MD - Last Filed: 07/21/23 23:57> Initial Vital Signs Temperature 98.2 F 07/21/23 05:24 Temperature Source Temporal Artery Scan 07/21/23 05:24 Pulse Rate 99 07/21/23 05:24 Respiratory Rate 24 07/21/23 05:24 Blood Pressure 154/96 H 07/21/23 05:24 Blood Pressure Mean 115 H 07/21/23 05:24 Blood Pressure Position Supine 07/21/23 05:24 Pulse Oximetry 94 07/21/23 05:24 Oxygen Delivery Method Nasal Cannula 07/21/23 05:24 Oxygen Flow Rate 4 07/21/23 05:24 Vital Signs Temperature 98.2 F 07/21/23 05:24 Pulse Rate 99 07/21/23 05:24 Respiratory Rate 24 07/21/23 05:24 Blood Pressure 154/96 H 07/21/23 05:24 Pulse Oximetry 94 07/21/23 05:24 Oxygen Delivery Method Nasal Cannula 07/21/23 05:24 Oxygen Flow Rate 4 07/21/23 05:24 Temperature 98.2 F 07/21/23 05:24 Pulse Rate 52 L 10/05/23 11:52 Respiratory Rate 20 07/21/23 12:00 Blood Pressure 110/65 07/21/23 11:57 Pulse Oximetry 95 07/21/23 11:52 Oxygen Delivery Method Intubated 07/21/23 12:00 Oxygen Flow Rate 4 07/21/23 06:00 Fraction of Inspired Oxygen 0.30 07/21/23 09:21 <Mariely Rios MD - Last Filed: 07/21/23 12:17> Medical Decision Making Lab Data Labs: Lab Results 07/21/23 07/21/23 07/21/23 Range/Units 05:35 05:45 05:55 WBC 8.23 (4.50-11.00) K/uL RBC 4.73 (4.30-5.90) m/uL Hgb 12.8 L (13.5-17.5) gm/dL Hct 42.4 (37.0-53.0) % MCV 90 (80-100) fL MCH 27 (26-34) pg MCHC 30 L (32-36) gm/dL RDW Coeff of Nedra 15.2 (11.5-15.5) % Plt Count 243 (140-440) K/uL Neut % (Auto) 79.6 H (42.0-72.0) % Lymph % (Auto) 12.3 L (20-44) % Gonzales % (Auto) 6.2 (0.0-11.0) % Eos % (Auto) 1.2 (0.0-7.0) % Baso % (Auto) 0.1 (0.0-3.0) % Neut # (Auto) 6.60 (1.7-7.0) K/uL Lymph # (Auto) 1.00 (0.90-2.90) K/uL Gonzales # (Auto) 0.50 (0.00-0.90) K/UL Eos # (Auto) 0.10 (0.00-0.50) K/uL Baso # (Auto) 0.01 (0.00-0.30) K/uL Abs Immat Gran (auto) 0.05 (0.00-0.30) K/uL Imm/Tot Granulo (auto) 0.6 % VBG pH 7.262 L (7.32-7.43) VBG pCO2 91 H* (40-50) mmHG VBG pO2 30.9 (25-47) mmHG VBG HCO3 41 H (21-28) mmol/L Sodium 141 (135-149) mmol/L Potassium 4.5 (3.6-5.1) mmol/L Chloride 96 (96-114) mmol/L Carbon Dioxide 36 H (20-32) mmol/L Anion Gap 9 (7-15) mEq/L BUN 16 (7-30) mg/dL Creatinine 0.8 (0.5-1.5) mg/dL Estimated Creat Clear 65.55 Estimated GFR 95 ml/min Glucose 116 H (60-115) mg/dL Lactate 0.6 (0.5-1.9) mmol/L Calcium 9.3 (8.4-10.6) mg/dL Troponin I 0.03 (0.01-0.04) ng/mL C-Reactive Protein 1.4 H (0.5-1.0) mg/dL Urine Color (Yellow) Urine Appearance (Clear) Urine pH (5.0-8.5) Ur Specific [place] (1.000-1.030) Urine Protein (Negative) Urine Glucose (UA) (Negative) Urine Ketones (Negative) Urine Blood (Negative) Urine Nitrite (Negative) Urine Bilirubin (Negative) Urine Urobilinogen (0.2-1.0) Ur Leukocyte Esterase (Negative) Urine RBC (0-2) Urine WBC (0-5) Urine WBC Clumps (None) Ur Squamous Epith Cells (None-Few) Urine Bacteria (None) Hyaline Casts (None-Few) Urine Mucus (None) Urine Opiates Screen (Negative) Ur Oxycodone Screen (Negative) Urine Methadone Screen (Negative) Ur Propoxyphene Screen (Negative) Ur Barbiturates Screen (Negative) U Tricyclic Antidepress (Negative) Ur Phencyclidine Scrn (Negative) Ur Amphetamines Screen (Negative) U Methamphetamines Scrn (Negative) U Benzodiazepines Scrn (Negative) Urine Cocaine Screen (Negative) U Marijuana (THC) Screen (Negative) Ur Drug Screen Comment SARS-CoV-2 (PCR) POSITIVE SARS-CoV-2 A (Negative) Influenza Type A (PCR) Negative PCR FLU A (Negative) Influenza Type B (PCR) Negative PCR FLU B (Negative) RSV (PCR) Negative PCR RSV (Negative) POC Troponin I 0.03 (0.01-0.04) ng/ml 07/21/23 07/21/23 07/21/23 Range/Units 07:54 11:16 Unknown WBC (4.50-11.00) K/uL RBC (4.30-5.90) m/uL Hgb (13.5-17.5) gm/dL Hct (37.0-53.0) % MCV (80-100) fL MCH (26-34) pg MCHC (32-36) gm/dL RDW Coeff of Nedra (11.5-15.5) % Plt Count (140-440) K/uL Neut % (Auto) (42.0-72.0) % Lymph % (Auto) (20-44) % Gonzales % (Auto) (0.0-11.0) % Eos % (Auto) (0.0-7.0) % Baso % (Auto) (0.0-3.0) % Neut # (Auto) (1.7-7.0) K/uL Lymph # (Auto) (0.90-2.90) K/uL [place] # (Auto) (0.00-0.90) K/UL Eos # (Auto) (0.00-0.50) K/uL Baso # (Auto) (0.00-0.30) K/uL Abs Immat Gran (auto) (0.00-0.30) K/uL Imm/Tot Granulo (auto) % VBG pH 7.371 7.324 (7.32-7.43) VBG pCO2 65 H* 72 H* (40-50) mmHG VBG pO2 61.1 H 30.6 (25-47) mmHG VBG HCO3 38 H 37 H (21-28) mmol/L Sodium (135-149) mmol/L Potassium (3.6-5.1) mmol/L Chloride (96-114) mmol/L Carbon Dioxide (20-32) mmol/L Anion Gap (7-15) mEq/L BUN (7-30) mg/dL Creatinine (0.5-1.5) mg/dL Estimated Creat Clear Estimated GFR ml/min Glucose (60-115) mg/dL Lactate (0.5-1.9) mmol/L Calcium (8.4-10.6) mg/dL Troponin I 0.03 (0.01-0.04) ng/mL C-Reactive Protein (0.5-1.0) mg/dL Urine Color Yellow (Yellow) Urine Appearance Clear (Clear) Urine pH 5.5 (5.0-8.5) Ur Specific [place] >= 1.030 (1.000-1.030) Urine Protein 1+ A (Negative) Urine Glucose (UA) Negative (Negative) Urine Ketones Negative (Negative) Urine Blood Negative (Negative) Urine Nitrite Negative (Negative) Urine Bilirubin Negative (Negative) Urine Urobilinogen 0.2 (0.2-1.0) Ur Leukocyte Esterase Negative (Negative) Urine RBC 2-5 A (0-2) Urine WBC 5-10 A (0-5) Urine WBC Clumps None (None) Ur Squamous Epith Cells None (None-Few) Urine Bacteria None (None) Hyaline Casts Few (None-Few) Urine Mucus Moderate A (None) Urine Opiates Screen POSITIVE A (Negative) Ur Oxycodone Screen Negative (Negative) Urine Methadone Screen Negative (Negative) Ur Propoxyphene Screen Negative (Negative) Ur Barbiturates Screen Negative (Negative) U Tricyclic Antidepress Negative (Negative) Ur Phencyclidine Scrn Negative (Negative) Ur Amphetamines Screen Negative (Negative) U Methamphetamines Scrn Negative (Negative) U Benzodiazepines Scrn Negative (Negative) Urine Cocaine Screen Negative (Negative) U Marijuana (THC) Screen POSITIVE A (Negative) Ur Drug Screen Comment See Note SARS-CoV-2 (PCR) (Negative) Influenza Type A (PCR) (Negative) Influenza Type B (PCR) (Negative) RSV (PCR) (Negative) POC Troponin I (0.01-0.04) ng/ml <Oanh Ying MD - Last Filed: 07/21/23 23:57> Lab Results 07/21/23 07/21/23 07/21/23 Range/Units 05:35 05:45 05:55 WBC 8.23 (4.50-11.00) K/uL RBC 4.73 (4.30-5.90) m/uL Hgb 12.8 L (13.5-17.5) gm/dL Hct 42.4 (37.0-53.0) % MCV 90 (80-100) fL MCH 27 (26-34) pg MCHC 30 L (32-36) gm/dL RDW Coeff of Nedra 15.2 (11.5-15.5) % Plt Count 243 (140-440) K/uL Neut % (Auto) 79.6 H (42.0-72.0) % Lymph % (Auto) 12.3 L (20-44) % Gonzales % (Auto) 6.2 (0.0-11.0) % Eos % (Auto) 1.2 (0.0-7.0) % Baso % (Auto) 0.1 (0.0-3.0) % Neut # (Auto) 6.60 (1.7-7.0) K/uL Lymph # (Auto) 1.00 (0.90-2.90) K/uL [place] # (Auto) 0.50 (0.00-0.90) K/UL Eos # (Auto) 0.10 (0.00-0.50) K/uL Baso # (Auto) 0.01 (0.00-0.30) K/uL Abs Immat Gran (auto) 0.05 (0.00-0.30) K/uL Imm/Tot Granulo (auto) 0.6 % VBG pH 7.262 L (7.32-7.43) VBG pCO2 91 H* (40-50) mmHG VBG pO2 30.9 (25-47) mmHG VBG HCO3 41 H (21-28) mmol/L Sodium 141 (135-149) mmol/L Potassium 4.5 (3.6-5.1) mmol/L Chloride 96 (96-114) mmol/L Carbon Dioxide 36 H (20-32) mmol/L Anion Gap 9 (7-15) mEq/L BUN 16 (7-30) mg/dL Creatinine 0.8 (0.5-1.5) mg/dL Estimated Creat Clear 65.55 Estimated GFR 95 ml/min Glucose 116 H (60-115) mg/dL Lactate 0.6 (0.5-1.9) mmol/L Calcium 9.3 (8.4-10.6) mg/dL Troponin I 0.03 (0.01-0.04) ng/mL C-Reactive Protein 1.4 H (0.5-1.0) mg/dL Urine Color (Yellow) Urine Appearance (Clear) Urine pH (5.0-8.5) Ur Specific [place] (1.000-1.030) Urine Protein (Negative) Urine Glucose (UA) (Negative) Urine Ketones (Negative) Urine Blood (Negative) Urine Nitrite (Negative) Urine Bilirubin (Negative) Urine Urobilinogen (0.2-1.0) Ur Leukocyte Esterase (Negative) Urine RBC (0-2) Urine WBC (0-5) Urine WBC Clumps (None) Ur Squamous Epith Cells (None-Few) Urine Bacteria (None) Hyaline Casts (None-Few) Urine Mucus (None) Urine Opiates Screen (Negative) Ur Oxycodone Screen (Negative) Urine Methadone Screen (Negative) Ur Propoxyphene Screen (Negative) Ur Barbiturates Screen (Negative) U Tricyclic Antidepress (Negative) Ur Phencyclidine Scrn (Negative) Ur Amphetamines Screen (Negative) U Methamphetamines Scrn (Negative) U Benzodiazepines Scrn (Negative) Urine Cocaine Screen (Negative) U Marijuana (THC) Screen (Negative) Ur Drug Screen Comment SARS-CoV-2 (PCR) POSITIVE SARS-CoV-2 A (Negative) Influenza Type A (PCR) Negative PCR FLU A (Negative) Influenza Type B (PCR) Negative PCR FLU B (Negative) RSV (PCR) Negative PCR RSV (Negative) POC Troponin I 0.03 (0.01-0.04) ng/ml 07/21/23 07/21/23 07/21/23 Range/Units 07:54 11:16 Unknown WBC (4.50-11.00) K/uL RBC (4.30-5.90) m/uL Hgb (13.5-17.5) gm/dL Hct (37.0-53.0) % MCV (80-100) fL MCH (26-34) pg MCHC (32-36) gm/dL RDW Coeff of Nedra (11.5-15.5) % Plt Count (140-440) K/uL Neut % (Auto) (42.0-72.0) % Lymph % (Auto) (20-44) % [place] % (Auto) (0.0-11.0) % Eos % (Auto) (0.0-7.0) % Baso % (Auto) (0.0-3.0) % Neut # (Auto) (1.7-7.0) K/uL Lymph # (Auto) (0.90-2.90) K/uL [place] # (Auto) (0.00-0.90) K/UL Eos # (Auto) (0.00-0.50) K/uL Baso # (Auto) (0.00-0.30) K/uL Abs Immat Gran (auto) (0.00-0.30) K/uL Imm/Tot Granulo (auto) % VBG pH 7.371 7.324 (7.32-7.43) VBG pCO2 65 H* 72 H* (40-50) mmHG VBG pO2 61.1 H 30.6 (25-47) mmHG VBG HCO3 38 H 37 H (21-28) mmol/L Sodium (135-149) mmol/L Potassium (3.6-5.1) mmol/L Chloride (96-114) mmol/L Carbon Dioxide (20-32) mmol/L Anion Gap (7-15) mEq/L BUN (7-30) mg/dL Creatinine (0.5-1.5) mg/dL Estimated Creat Clear Estimated GFR ml/min Glucose (60-115) mg/dL Lactate (0.5-1.9) mmol/L Calcium (8.4-10.6) mg/dL Troponin I 0.03 (0.01-0.04) ng/mL C-Reactive Protein (0.5-1.0) mg/dL Urine Color Yellow (Yellow) Urine Appearance Clear (Clear) Urine pH 5.5 (5.0-8.5) Ur Specific [place] >= 1.030 (1.000-1.030) Urine Protein 1+ A (Negative) Urine Glucose (UA) Negative (Negative) Urine Ketones Negative (Negative) Urine Blood Negative (Negative) Urine Nitrite Negative (Negative) Urine Bilirubin Negative (Negative) Urine Urobilinogen 0.2 (0.2-1.0) Ur Leukocyte Esterase Negative (Negative) Urine RBC 2-5 A (0-2) Urine WBC 5-10 A (0-5) Urine WBC Clumps None (None) Ur Squamous Epith Cells None (None-Few) Urine Bacteria None (None) Hyaline Casts Few (None-Few) Urine Mucus Moderate A (None) Urine Opiates Screen POSITIVE A (Negative) Ur Oxycodone Screen Negative (Negative) Urine Methadone Screen Negative (Negative) Ur Propoxyphene Screen Negative (Negative) Ur Barbiturates Screen Negative (Negative) U Tricyclic Antidepress Negative (Negative) Ur Phencyclidine Scrn Negative (Negative) Ur Amphetamines Screen Negative (Negative) U Methamphetamines Scrn Negative (Negative) U Benzodiazepines Scrn Negative (Negative) Urine Cocaine Screen Negative (Negative) U Marijuana (THC) Screen POSITIVE A (Negative) Ur Drug Screen Comment See Note SARS-CoV-2 (PCR) (Negative) Influenza Type A (PCR) (Negative) Influenza Type B (PCR) (Negative) RSV (PCR) (Negative) POC Troponin I (0.01-0.04) ng/ml <Mariely Rios MD - Last Filed: 07/21/23 12:17> Imaging Data Chest x-ray: Attestation: I have reviewed the pertinent imaging results. <Oanh Ying MD - Last Filed: 07/21/23 23:57> My impression: Cardiomegaly with no obvious effusion or infiltrate. Morbid obesity and inspiration overall. <Oanh Ying MD - Last Filed: 07/21/23 23:57> Radiologist's impression: IMPRESSION: No specific radiographic findings to explain the history of dyspnea. Dictated by Ulysses Aguilar MD @ 07/21/2023 6:43:55 AM <Oanh Ying MD - Last Filed: 07/21/23 23:57> IMPRESSION: No specific radiographic findings to explain the history of dyspnea. Dictated by Ulysses Aguilar MD @ 07/21/2023 6:43:55 AM <Mariely Rios MD - Last Filed: 07/21/23 12:17> ECG Data Prior ECG tracings: available for review <Oanh Ying MD - Last Filed: 07/21/23 23:57> Interpretation: Overall, poor quality. Nursing team reports that he was kicking his feet a lot and was being a bit difficult. Overall the EKG looks pretty similar to previous values. He has got some chronic septal changes which do seem similar to September of 2022. No obvious new ischemic changes. Overall sinus rhythm with a rate of 63 today. Right axis deviation noted. <Oanh Ying MD - Last Filed: 07/21/23 23:57> Critical Care Time Critical Care Time Critical Care Time: Yes Attestation: The patient required my highest level preparedness to intervene emergently and I personally spent this critical care time directly and personally managing the patient. This critical care time included: Obtaining a history; Examining the patient; Pulse oximetry; Ordering and reviewing of studies; Arranging urgent treatment with development of a management plan; Evaluation of patients response to treatment; Frequent reassessment discussions with other providers. This critical care time was performed to assess and manage the high probability of imminent life-threatening deterioration that could result in multiorgan failure. It was exclusive of separate billable procedures and treating other patients and teaching time. <Mariely Rios MD - Last Filed: 07/21/23 12:17> Total Critical Care Time in Minutes: 120 <Mariely Rios MD - Last Filed: 07/21/23 12:17> Discharge Plan Discharge Clinical Impression: Acute delirium, Acute on chronic respiratory failure with hypercapnia, COVID, Airway intubation performed without difficulty <Oanh Ying MD - Last Filed: 07/21/23 23:57> Patient Disposition: Xfer [facility] <Oanh Ying MD - Last Filed: 07/21/23 23:57> Discharge Location: [facility] <Oanh Ying MD - Last Filed: 07/21/23 23:57> Condition: Critical <Oanh Ying MD - Last Filed: 07/21/23 23:57> Prescriptions: No Action potassium chloride 10 mEq tablet,ER particles/crystals 20 meq PO DAILY torsemide 20 mg tablet 20 mg PO DAILY Patient Comments: 1 tablet daily albuterol sulfate 90 mcg/actuation HFA aerosol inhaler 2 inh INHALATION Q4H PRN Patient Comments: INHALE 1 TO 2 PUFFS BY MOUTH EVERY 4 HOURS NEEDED lamotrigine [Lamictal] 100 mg tablet 100 mg PO HS Patient Comments: Take 1 tablet by mouth at bedtime escitalopram oxalate [Lexapro] 20 mg tablet 20 mg PO DAILY Patient Comments: Take 1 tablet by mouth once a day bupropion HCl [Wellbutrin XL] 300 mg tablet extended release 24 hr 300 mg PO DAILY Patient Comments: 1 tablet by mouth once a day budesonide-formoterol [Symbicort] 160-4.5 mcg/actuation HFA aerosol inhaler 2 puff INHALATION BID Patient Comments: INHALE 2 PUFFS BY MOUTH TWICE DAILY metoprolol succinate 50 mg tablet extended release 24 hr 50 mg PO DAILY losartan 100 mg tablet 100 mg PO DAILY <Oanh Ying MD - Last Filed: 07/21/23 23:57> Stand Alone Forms: [employer] Info Instructions <Oanh Ying MD - Last Filed: 07/21/23 23:57>
[2023-07-21 06:00] LABS: HCO3 VBG 41 mmol/L (21-28); Lactate* 0.6 mmol/L (0.5-1.9); PO2 VBG 30.9 mmHG (25-47); pH VBG 7.262 (7.32-7.43)
[2023-07-21 06:07] LABS: Basophils Absolute Auto 0.01 K/uL (0.00-0.30); Basophils Percent Auto 0.1 % (0.0-3.0); Eosinophils Percent Auto 1.2 % (0.0-7.0); Hematocrit 42.4 % (37.0-53.0); Hemoglobin* 12.8 gm/dL (13.5-17.5); Immature Granulocytes Abs Auto 0.05 K/uL (0.00-0.30); Immature Granulocytes Pct Auto 0.6 %; Lymphocytes Percent Auto 12.3 % (20-44); Mean Corpuscular HGB Conc 30 gm/dL (32-36); Mean Corpuscular Hemoglobin 27 pg (26-34); Mean Corpuscular Volume 90 fL (80-100); Monocytes Percent Auto 6.2 % (0.0-11.0); Neutrophils Percent Auto 79.6 % (42.0-72.0); Platelet Count* 243 K/uL (140-440); RDW Coefficient of Variation % 15.2 % (11.5-15.5); Red Blood Count 4.73 m/uL (4.30-5.90); White Blood Count* 8.23 K/uL (4.50-11.00)
[2023-07-21 06:08] LABS: PCO2 VBG 91 mmHG (40-50)
[2023-07-21 06:11] LABS: Slide Review Reflex No
[2023-07-21 06:20] LABS: Chloride* 96 mmol/L (96-114); Potassium* 4.5 mmol/L (3.6-5.1); Sodium* 141 mmol/L (135-149)
[2023-07-21 06:22] LABS: Creatinine* 0.8 mg/dL (0.5-1.5); Est. Creatinine Clearance* 65.55; Estimated Glomerular Filt Rate 95 ml/min
[2023-07-21 06:23] LABS: Blood Urea Nitrogen* 16 mg/dL (7-30); Calcium* 9.3 mg/dL (8.4-10.6); Glucose* 116 mg/dL (60-115)
[2023-07-21] MEDS: IPRAT-ALBUT 0.5-2.5 MG/3 ML NEB 1 NEB IH (06:25)
[2023-07-21 06:26] LABS: C Reactive Protein* 1.4 mg/dL (0.5-1.0)
[2023-07-21 06:30] LABS: Anion Gap 9 mEq/L (7-15); Carbon Dioxide* 36 mmol/L (20-32)
[2023-07-21 06:35] LABS: Troponin I* 0.03 ng/mL (0.01-0.04)
[2023-07-21 06:42] LABS: PCR FLU A Negative PCR FLU A (Negative); PCR FLU B Negative PCR FLU B (Negative); PCR RSV Negative PCR RSV (Negative)
[2023-07-21 06:45] LABS: Troponin, Point-of-Care* 0.03 ng/ml (0.01-0.04)
[2023-07-21 06:45] LABS: SARS PCR* POSITIVE SARS-CoV-2 (Negative)
[2023-07-21 07:59] LABS: HCO3 VBG 38 mmol/L (21-28); PO2 VBG 61.1 mmHG (25-47); pH VBG 7.371 (7.32-7.43)
[2023-07-21 08:05] LABS: PCO2 VBG 65 mmHG (40-50)
[2023-07-21] MEDS: dexAMETHasone 10 MG/ML inj IVP (10:05)
--- NOTE | 2023-07-21 10:05 | PC.NURSE ---
preparing to intubate, RT, Dr Lewis and Dr Delatorre in room, pharmacy present, obtaining second IV
[2023-07-21] MEDS: KETAMINE HCL 100 MG/ML inj 250 MG IVP (10:15)
[2023-07-21] MEDS: SUCCINYLCHOLINE 20 MG/ML INJ 150 MG IVP (10:17)
[2023-07-21] MEDS: KETAMINE HCL 500 MG in 0.9 % SODIUM CHLORIDE 500 ML 500 ML 119.11 MG IVPB (10:25)
[2023-07-21] MEDS: MIDAZOLAM HCL 1 MG/ML inj 2 MG IVP ×3 (10:30→10:45)
[2023-07-21] MEDS: 0.9 % SODIUM CHLORIDE 250 ml 250 ML IV (11:05)
[2023-07-21 11:20] LABS: HCO3 VBG 37 mmol/L (21-28); PO2 VBG 30.6 mmHG (25-47); pH VBG 7.324 (7.32-7.43)
[2023-07-21] MEDS: fentaNYL 100 MCG/2 ML inj IV ×2 (11:20→11:47)
[2023-07-21 11:23] LABS: PCO2 VBG 72 mmHG (40-50)
--- NOTE | 2023-07-21 11:25 | RESP.RT ---
Patient on BiPAP set up by nursing this morning adjusted BiPAP settings to 18/8 .30 Patient continued to deteriorate and needed to be intubated prior to transport. Patient intubated with a 7.5ETT @ 24. Vent set up at .30CMV+ 520 5
--- NOTE | 2023-07-21 11:44 | PC.NURSE ---
report given to Connie at [facility], pt urine sent to lab after person placed
[2023-07-21 11:46] LABS: Appearance Urine Clear (Clear); Bilirubin Urine Negative (Negative); Blood Urine Negative (Negative); Color Urine Yellow (Yellow); Glucose Urine Negative (Negative); Ketones Urine Negative (Negative); Leukocyte Esterase Urine Negative (Negative); Nitrite Urine Negative (Negative); Protein Urine 1+ (Negative); Specific Gravity Urine >= 1.030 (1.000-1.030); Urobilinogen Urine 0.2 (0.2-1.0); pH Urine 5.5 (5.0-8.5)
[2023-07-21] MEDS: KETAMINE HCL 500 MG in 0.9 % SODIUM CHLORIDE 500 ML 500 ML 357.34 MG IVPB (11:50)
[2023-07-21 11:52] LABS: Amphetamine Screen Urine Negative (Negative); Barbiturate Screen Urine Negative (Negative); Benzodiazepines Screen Urine Negative (Negative); Cannabinoid Screen Urine POSITIVE (Negative); Cocaine Screen Urine Negative (Negative); Methadone Screen Urine Negative (Negative); Methamphetamines Screen Urine Negative (Negative); Opiate Screen Urine POSITIVE (Negative); Oxycodone Screen Urine Negative (Negative); Phencyclidine Screen Urine Negative (Negative); Tricyclic Antidepressant Urine Negative (Negative)
[2023-07-21 12:05] LABS: Hyaline Casts Urine Few (None-Few); Mucus Urine Moderate
[2023-07-21 12:11] LABS: Troponin I* 0.03 ng/mL (0.01-0.04)
== END 2023-07-21 12:29 | disposition short-term general hospital (02) ==
PROVIDERS: Emergency Provider Family Medicine; PCP Family Medicine
DX: U07.1 COVID-19 (principal); J96.02 Acute respiratory failure with hypercapnia; R41.0 Disorientation, unspecified
CPT/HCPCS: 31500; 36415; 71045; 71046; 80048; 80306; 81003; 81015; 82803; 83605; 84484; 85025; 86140; 87086; 87631; 93005; 94640; 94660; 94761; 99285; 99291; 99292; J0330; J1100; J2250; J3010; J3490; J7050; J7120

== ENCOUNTER 2023-07-21 11:49 | Outpatient (CLI) | payer MEDICARE, BC, SELFPAY | END 2023-07-21 11:50 | disposition home or self-care (01) | LOC: AMB 07-24 10:12 | PROVIDERS: PCP Family Medicine; Visit Provider Emergency Medicine | DX: U07.1 COVID-19 (principal); R06.09 Other forms of dyspnea | CPT/HCPCS: A0425; A0434 ==

== ENCOUNTER 2023-11-14 21:27 | Inpatient (IN) | payer MEDICARE, BC, SELFPAY ==
[2023-11-14] VITALS (22 sets, daily range): BP systolic 137–191; BP diastolic 74–135; PULSE 62–78; RESP 20; TEMP 36.6; O2SAT 81–98
--- NOTE | 2023-11-14 21:35 | ED.NURSE ---
Pt made several inappropriate comments to the female staff during his triage intake, requesting that female nurses hop in bed with me to warm me up, and inquiring about the relationship status of several female staff members in the room. Cell Support Operator was notified of these comments. was in room and is aware of the comments as well.
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
[2023-11-14 22:11] LABS: HCO3 VBG 36 mmol/L (21-28); pH VBG 7.274 (7.32-7.43)
[2023-11-14 22:19] LABS: Basophils Absolute Auto 0.02 K/uL (0.00-0.30); Basophils Percent Auto 0.2 % (0.0-3.0); Eosinophils Absolute Auto 0.22 K/uL (0.00-0.50); Eosinophils Percent Auto 2.3 % (0.0-7.0); Hematocrit 45.1 % (37.0-53.0); Hemoglobin* 13.9 gm/dL (13.5-17.5); Immature Granulocytes Abs Auto 0.05 K/uL (0.00-0.30); Immature Granulocytes Pct Auto 0.5 %; Lymphocytes Percent Auto 15.1 % (20-44); Mean Corpuscular HGB Conc 31 gm/dL (32-36); Mean Corpuscular Hemoglobin 27 pg (26-34); Mean Corpuscular Volume 89 fL (80-100); Monocytes Percent Auto 6.3 % (0.0-11.0); Neutrophils Percent Auto 75.6 % (42.0-72.0); Platelet Count* 161 K/uL (140-440); RDW Coefficient of Variation % 15.4 % (11.5-15.5); Red Blood Count 5.09 m/uL (4.30-5.90); White Blood Count* 9.69 K/uL (4.50-11.00)
[2023-11-14 22:39] LABS: PCO2 VBG 77 mmHG (40-50)
--- NOTE | 2023-11-14 22:42 | ED.NURSE ---
Patient desat with laying flat, history of AGUSTIN. Repositioned in bed, saturations increased with 4 L oxymask on.
[2023-11-14] MEDS: IPRAT-ALBUT 0.5-2.5 MG/3 ML NEB 1 NEB IH (22:44)
[2023-11-14 22:45] LABS: Slide Review Reflex Yes
[2023-11-14 22:48] LABS: Slide Review Acceptable Review (Acceptable)
--- NOTE | 2023-11-14 22:50 | ED.NURSE ---
Pt advised by ad writer that his earlier comments towards the female staff were inappropriate and unwelcome and that it is not acceptable for him to make inappropriate/sexual comments towards the female staff. Pt apologized at this time and acknowledged that he would not make these comments in the future. Hat Ironer also pointed out the sign in pt's room that stated inappropriate/sexual language is prohibited. Pt acknowledged the presence of this sign.
[2023-11-14 23:09] LABS: INR 0.93 (0.91-1.10)
[2023-11-14 23:12] LABS: Chloride* 106 mmol/L (96-114); Potassium* 4.3 mmol/L (3.6-5.1); Sodium* 150 mmol/L (135-149)
[2023-11-14 23:14] LABS: Creatinine* 0.8 mg/dL (0.5-1.5); Estimated Glomerular Filt Rate 95 ml/min
[2023-11-14 23:15] LABS: Anion Gap 11 mEq/L (7-15); Blood Urea Nitrogen* 14 mg/dL (7-30); Calcium* 9.9 mg/dL (8.4-10.6); Carbon Dioxide* 33 mmol/L (20-32); Glucose* 104 mg/dL (60-115)
[2023-11-14 23:16] LABS: Ethanol* < 0.01 % (0.01-0.03)
[2023-11-14] MEDS: 0.9 % SODIUM CHLORIDE 1000 ml 1,000 ML IV (23:48)
[2023-11-14] MEDS: METHYLPREDNISOLONE SOD SUCC 62.5 MG/ML (125) 125 MG IVP (23:48)
[2023-11-15] VITALS (25 sets, daily range): BP systolic 124–172; BP diastolic 70–102; PULSE 62–96; RESP 20–28; TEMP 36.5–36.9; O2SAT 86–97; BMI 45.1
[2023-11-15 00:11] LABS: PCR FLU A Negative PCR FLU A (Negative); PCR FLU B Negative PCR FLU B (Negative); PCR RSV Negative PCR RSV (Negative); SARS PCR* Negative SARS-CoV-2 (Negative)
[2023-11-15 00:27] LABS: HCO3 VBG 34 mmol/L (21-28); PO2 VBG 68.1 mmHG (25-47)
[2023-11-15 00:31] LABS: PCO2 VBG 68 mmHG (40-50)
[2023-11-15] MEDS: IPRAT-ALBUT 0.5-2.5 MG/3 ML NEB 1 NEB IH ×5 (01:06→23:32)
[2023-11-15 01:37] LABS: Amphetamine Screen Urine Negative (Negative); Barbiturate Screen Urine Negative (Negative); Benzodiazepines Screen Urine Negative (Negative); Cannabinoid Screen Urine Negative (Negative); Cocaine Screen Urine Negative (Negative); Methadone Screen Urine Negative (Negative); Methamphetamines Screen Urine Negative (Negative); Opiate Screen Urine Negative (Negative); Oxycodone Screen Urine Negative (Negative); Phencyclidine Screen Urine Negative (Negative); Tricyclic Antidepressant Urine Negative (Negative)
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
[2023-11-15] MEDS: METHYLPREDNISOLONE SOD SUCC 40 MG/ML IVP (03:45)
[2023-11-15] MEDS: ENOXAPARIN 40 MG/0.4 ML INJ SUBCUT (03:45)
[2023-11-15 05:40] LABS: HCO3 VBG 33 mmol/L (21-28); PO2 VBG 57.7 mmHG (25-47); pH VBG 7.322 (7.32-7.43)
[2023-11-15 05:42] LABS: PCO2 VBG 64 mmHG (40-50)
[2023-11-15 06:02] LABS: Chloride* 104 mmol/L (96-114); Sodium* 143 mmol/L (135-149)
[2023-11-15 06:03] LABS: Potassium* 4.4 mmol/L (3.6-5.1)
[2023-11-15 06:05] LABS: Anion Gap 7 mEq/L (7-15); Carbon Dioxide* 32 mmol/L (20-32); Creatinine* 0.7 mg/dL (0.5-1.5); Est. Creatinine Clearance* 63.35; Estimated Glomerular Filt Rate 99 ml/min
[2023-11-15 06:06] LABS: Blood Urea Nitrogen* 12 mg/dL (7-30); Calcium* 9.4 mg/dL (8.4-10.6); Glucose* 169 mg/dL (60-115)
--- NOTE | 2023-11-15 06:49 | PC.NURSE ---
Admission: Pt up from ER on Bipap @0130, pt A&O at times with frequent confusion, reorients easily. Denies pain, N/V and CP. Reports SOB with exertion. Pt took BiPAP off at 0530 and stated he couldn't stand it anymore, placed on 2L with O2 sats 88-92%, lab called to obtain labs. Pt's CO2 and PH were improved this AM, updated and order received to switch pt back to floor care. Pt up SBA. Tele NSR. Afebrile.
--- NOTE | 2023-11-15 09:44 | RESP.RT ---
Patient was placed on BiPAP by Nursing when admitted during the night. Settings were IPAP 12, EPAP 5, FiO2 40%. Prior notes show patients best settings and Home BiPAP settings to be IPAP 18, EPAP 8, Fio2 30%. Home Bleed in Oxygen was what patient needed. Patient needs encouragement to keep mask on. VBG's base line pCO2 mid 60's with patient comfortable, alert, and cognitive with these levels.
[2023-11-15] MEDS: DOXYCYCLINE HYCLATE 100 MG PO ×2 (10:05→20:28)
[2023-11-15] MEDS: SODIUM CHLORIDE 0.9 % (FLUSH) 10 ML SYRINGE 5 ML IVF ×2 (10:06→20:30)
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
--- NOTE | 2023-11-15 15:36 | RESP.RT ---
Goal tonight to maintain patient SaO2 >85% while off BiPAP. OxyMask to 10 Lpm if needed. Patient may return to BiPAP if SaO2 remains low 80's% for extended period of time, has cognition issues for Person, Place, and Time when corrected by Nurse, and Stated SOB with use of accessory muscles and belly breathing and sniffing position.
[2023-11-15] MEDS: predniSONE 20 MG TABLET 40 MG PO (17:58)
[2023-11-15] MEDS: ESCITALOPRAM 10 MG TABLET 20 MG PO (18:30)
[2023-11-15] MEDS: buPROPion XL 150 MG TABLET 300 MG PO (18:30)
--- NOTE | 2023-11-15 18:56 | PC.NURSE ---
shift note: vss stable. pt desats to upper 70's with RA and minimal activity. Pt on 5L per oxymask with sats maintaining 91-94%. Pt appears to be very restless with l/e and head/jaw movement with sleep. Pt had loud abrupt conversation this a.m. sheet writer provided calm atmosphere. Pt 1/walker to bathroom. KAMLESH potter
[2023-11-15] MEDS: lamoTRIgine 100 MG TABLET PO (20:25)
[2023-11-16] VITALS (9 sets, daily range): BP systolic 140–155; BP diastolic 74–95; PULSE 73–85; RESP 20–24; TEMP 36.5–37.1; O2SAT 79–95
[2023-11-16] MEDS: ENOXAPARIN 40 MG/0.4 ML INJ SUBCUT (03:10)
[2023-11-16] MEDS: IPRAT-ALBUT 0.5-2.5 MG/3 ML NEB 1 NEB IH ×2 (05:32→13:00)
--- NOTE | 2023-11-16 06:32 | PC.NURSE ---
End of shift [id number]: A&O. Pt pleasant and cooperative with cares. VSS while on 3L OxyMask to maintain sats >85%. Pt denies SOB or chest pain. Denies pain. SBA w/ walker and gait belt. ?
[2023-11-16 07:25] LABS: HCO3 VBG 34 mmol/L (21-28); PO2 VBG 55.6 mmHG (25-47); pH VBG 7.331 (7.32-7.43)
[2023-11-16 07:34] LABS: Basophils Percent Auto 0.1 % (0.0-3.0); Hematocrit 39.3 % (37.0-53.0); Hemoglobin* 12.2 gm/dL (13.5-17.5); Immature Granulocytes Pct Auto 0.4 %; Lymphocytes Percent Auto 10.5 % (20-44); Mean Corpuscular HGB Conc 31 gm/dL (32-36); Mean Corpuscular Hemoglobin 28 pg (26-34); Mean Corpuscular Volume 90 fL (80-100); Monocytes Percent Auto 6.1 % (0.0-11.0); Neutrophils Percent Auto 82.9 % (42.0-72.0); Platelet Count* 232 K/uL (140-440); RDW Coefficient of Variation % 15.1 % (11.5-15.5); Red Blood Count 4.36 m/uL (4.30-5.90); White Blood Count* 12.24 K/uL (4.50-11.00)
[2023-11-16 07:36] LABS: PCO2 VBG 64 mmHG (40-50); Slide Review Reflex No
[2023-11-16 08:30] LABS: Procalcitonin* 0.07 ng/mL (<0.50)
[2023-11-16 08:39] LABS: Chloride* 104 mmol/L (96-114); Potassium* 4.3 mmol/L (3.6-5.1); Sodium* 142 mmol/L (135-149)
[2023-11-16 08:42] LABS: Anion Gap 5 mEq/L (7-15); Blood Urea Nitrogen* 18 mg/dL (7-30); Calcium* 9.6 mg/dL (8.4-10.6); Carbon Dioxide* 33 mmol/L (20-32); Creatinine* 0.6 mg/dL (0.5-1.5); Est. Creatinine Clearance* 63.35; Estimated Glomerular Filt Rate 103 ml/min; Glucose* 152 mg/dL (60-115)
[2023-11-16] MEDS: POTASSIUM CHLORIDE 10 MEQ CAPSULE ER 20 MEQ PO (09:09)
[2023-11-16] MEDS: buPROPion XL 150 MG TABLET 300 MG PO (09:09)
[2023-11-16] MEDS: predniSONE 20 MG TABLET 40 MG PO (09:09)
[2023-11-16] MEDS: TORSEMIDE 20 MG TABLET PO (09:09)
[2023-11-16] MEDS: LOSARTAN POTASSIUM 50 MG TABLET 100 MG PO (09:09)
[2023-11-16] MEDS: DOXYCYCLINE HYCLATE 100 MG PO (09:09)
[2023-11-16] MEDS: ESCITALOPRAM 10 MG TABLET 20 MG PO (09:09)
[2023-11-16] MEDS: METOPROLOL SUCCINATE (XL) 50 MG TAB PO (09:11)
[2023-11-16] MEDS: SODIUM CHLORIDE 0.9 % (FLUSH) 10 ML SYRINGE 5 ML IVF (09:11)
--- NOTE | 2023-11-16 11:40 | PC.SOCIAL ---
Addendum entered by FLORES Gay 11/16/23 14:43: Discharge planning: [employer] provided pt with a list of MH Resources for [facility]. Pt lives close to [place] and stated that he would most likely choose to go to a psychiatrist in [place]. [employer] also spoke with pt's daughter, Hanh, about pt's discharge. Hanh feels good about her father discharging home and either her or one of her brothers or sisters will be going with him to his upcoming PCP appointment with Dr. Moore. Hanh also asked this drug abuse social worker to send her a copy of the MH Resources for [facility]. This drug abuse social worker emailed the list to Hanh at [email or web address]. Social work to follow-up as needed. Original Note: Discharge planning: [employer] met with pt in his room. Discussed discharge planning. Pt feels good about returning home and has a ride home when he discharges. Pt stated that he has two roommates that help around the house and he also has hired a color control supervisor that helps him fix things around his house. Pt did state that he has not been taking his mental health medications due to his psychiatrist moving his practice out of [place] to another town that the pt is not able to go to. [employer] will gather resources for pt and bring them back to his room after his OT assessment. Social work to follow-up as needed.
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
--- NOTE | 2023-11-16 13:08 | RESP.RT ---
Patient did not need BiPAP during night, on OxyMask 3 Lpm to maintain SaO2 >85%. This AM Nurse change patient to NC 2-3 Lpm as needed NC, SaO2 90%. BBS with more air movement today over yesterday. Patient has Home Oxygen at 2 Lpm NC.
--- NOTE | 2023-11-16 16:47 | PC.NURSE ---
Patient has home oxygen and encouraged to use his oxygen when he gets home. Reviewed DC instructions with patient and he denied questions or concerns. Patient DC'd home via roommate.
== END 2023-11-16 15:30 | disposition home or self-care (01) | DRG 189 ==
LOC: ED 11-15 00:54 → MEDSURG 11-15 01:21
PROVIDERS: Family Medicine; Admitting Provider Internal Medicine; Emergency Provider Emergency Medicine; PCP Family Medicine; Visit Provider Emergency Medicine
DX: J96.21 Acute and chronic respiratory failure with hypoxia (principal); S22.41XA Multiple fractures of ribs, right side, initial encounter for closed fracture; J44.1 Chronic obstructive pulmonary disease with (acute) exacerbation; E66.2 Morbid (severe) obesity with alveolar hypoventilation; Z68.41 Body mass index [BMI] 40.0-44.9, adult; E87.0 Hyperosmolality and hypernatremia; J96.22 Acute and chronic respiratory failure with hypercapnia; Z99.81 Dependence on supplemental oxygen; Z77.22 Contact with and (suspected) exposure to environmental tobacco smoke (acute) (chronic); T68.XXXA Hypothermia, initial encounter; X31.XXXA Exposure to excessive natural cold, initial encounter; Y92.73 Farm field as the place of occurrence of the external cause; V48.5XXA Car driver injured in noncollision transport accident in traffic accident, initial encounter; Y92.415 Exit ramp or entrance ramp of street or highway as the place of occurrence of the external cause; J45.40 Moderate persistent asthma, uncomplicated; Z91.199 Patient's noncompliance with other medical treatment and regimen due to unspecified reason; F32.A Depression, unspecified; F41.9 Anxiety disorder, unspecified; E04.1 Nontoxic single thyroid nodule
CPT/HCPCS: 36415; 70450; 71275; 72125; 74177; 80048; 80306; 82077; 82803; 84145; 85025; 85610; 87631; 93005; 94640; 94660; 94761; 97116; 97161; 97165; 99285; 99291; A9270; G0378; G0390; J1650; J2920; J2930; J7030; J7512; Q9967